=== PATIENT | female | born 1990 | race Caucasian/White ===

== ENCOUNTER 2018-03-24 07:18 | Inpatient (IN) | payer BC, OTHER ==
[~2018-03-24] VITALS: Ht 165.1 cm; Wt 67.1 kg
[~2018-03-24 07:18] MED LIST: HYDR200T72 PO; IUD; MYCO500T PO
[2018-03-24] MEDS ORDERED: HTN MED PEG (07:40)
[2018-03-24] MEDS ORDERED: SODIUM CHLORIDE FLUSH 10ML SYR IVF ONE (08:00)
[2018-03-24 08:11] LABS: BASOPHILS # (AUTO) 0.05 x10^3/uL (0-0.1); BASOPHILS % (AUTO) 1 % (0-1); EOSINOPHILS # (AUTO) 0.02 x10^3/uL (0-0.4); EOSINOPHILS % (AUTO) 0 % (1-7); LYMPHOCYTES # (AUTO) 1.69 x10^3/uL (1-3.4); LYMPHOCYTES % (AUTO) 30 % (22-44); MD NO; MEAN CORPUSCULAR HGB CONC 32.9 g/dL (32.4-35.8); MEAN CORPUSCULAR VOLUME 91.1 fL (80-100); MEAN PLATELET VOLUME 7.1 fL (7.4-10.4); MONOCYTES # (AUTO) 0.36 x10^3/uL (0.2-0.8); MONOCYTES % (AUTO) 6 % (2-9); NEUTROPHILS # (AUTO) 3.58 x10^3/uL (1.8-6.8); NEUTROPHILS % (AUTO) 63 % (42-75); PLATELET COUNT 371 x10^3/uL (130-400); RED BLOOD COUNT 3.08 x10^6/uL (3.82-5.3); RED CELL DISTRIBUTION WIDTH 15.5 % (9.6-15.2)
[2018-03-24 08:23] LABS: ALANINE AMINOTRANSFERASE 14 U/L (12-78); ALBUMIN 2.8 g/dL (3.4-5.0); ANION GAP 8 mmol/L (5-15); CALCIUM 8.6 mg/dL (8.5-10.1); CHLORIDE 112 mmol/L (98-107)
[2018-03-24 08:39] LABS: ALKALINE PHOSPHATASE 41 U/L (45-117); BILIRUBIN,TOTAL 0.3 mg/dL (0.2-1.0)
[2018-03-24] MEDS ORDERED: SODIUM CHLORIDE FLUSH 10ML SYR IVF PRN (12:00)
[2018-03-24 13:22] VITALS: BP 173/115
[2018-03-24] MEDS ORDERED: PRED20TA PO (13:27)
[2018-03-24] MEDS ORDERED: AMLO5TAB2 PO (13:27)
[2018-03-24] MEDS ORDERED: DOCUSATE 100 MG CAPSULE PO PRN (14:00)
[2018-03-24] MEDS ORDERED: ONDANSETRON 2MG/ML, 2ML IVPush PRN (14:00)
[2018-03-24] MEDS ORDERED: FENTANYL PF 100 MCG/2ML ONE (16:05)
[2018-03-24] MEDS ORDERED: MIDAZOLAM 1 MG/ML, 2ML ONE (16:05)
[2018-03-24] MEDS: morphine SULFATE 10 MG/ML, 1ML IVPush PRN (17:50)
[2018-03-24 18:25] VITALS: BP 152/98
[2018-03-24 19:06] VITALS: BP 141/90
[2018-03-24 20:18] VITALS: BP_SYST 148; BP_SYST 149; BP_DIAS 107
[2018-03-24 20:19] VITALS: BP 150/110
[2018-03-24] MEDS: ACETAMINOPHEN 325 MG TABLET PO PRN (21:12)
[2018-03-24 21:55] LABS: CREATININE,URINE RANDOM 59.1 mg/dL
[2018-03-24 22:00] LABS: MICROSCOPIC INDICATED
[2018-03-24 22:09] LABS: CULTURE INDICATED? YES
[2018-03-25 01:05] VITALS: BP 139/98
[2018-03-25] MEDS: ACETAMINOPHEN 325 MG TABLET PO PRN ×2 (04:54→20:38)
[2018-03-25 06:05] LABS: ANION GAP 8 mmol/L (5-15); CALCIUM 8.1 mg/dL (8.5-10.1); CHLORIDE 112 mmol/L (98-107); CREATININE 2.87 mg/dL (0.55-1.02)
[2018-03-25 06:09] LABS: BASOPHILS # (AUTO) 0.05 x10^3/uL (0-0.1); BASOPHILS % (AUTO) 1 % (0-1); EOSINOPHILS # (AUTO) 0.07 x10^3/uL (0-0.4); EOSINOPHILS % (AUTO) 1 % (1-7); LYMPHOCYTES # (AUTO) 2.18 x10^3/uL (1-3.4); LYMPHOCYTES % (AUTO) 28 % (22-44); MD NO; MEAN CORPUSCULAR HEMOGLOBIN 31.3 pg (27.0-34.8); MEAN CORPUSCULAR HGB CONC 34.1 g/dL (32.4-35.8); MEAN CORPUSCULAR VOLUME 91.8 fL (80-100); MEAN PLATELET VOLUME 7.4 fL (7.4-10.4); MONOCYTES # (AUTO) 0.51 x10^3/uL (0.2-0.8); MONOCYTES % (AUTO) 7 % (2-9); NEUTROPHILS # (AUTO) 4.87 x10^3/uL (1.8-6.8); NEUTROPHILS % (AUTO) 64 % (42-75); PLATELET COUNT 352 x10^3/uL (130-400); RED BLOOD COUNT 2.97 x10^6/uL (3.82-5.3); RED CELL DISTRIBUTION WIDTH 15.3 % (9.6-15.2)
[2018-03-25 08:52] VITALS: BP 155/112
[2018-03-25] MEDS ORDERED: SODIUM CHLORIDE 0.9% 1,000ML IV ONE (10:30)
[2018-03-25] MEDS ORDERED: DIPHENHYDRAMINE 50 MG/ML, 1ML IVPush ONE (11:00)
[2018-03-25] MEDS ORDERED: ACETAMINOPHEN 325 MG TABLET PO ONE (11:00)
[2018-03-25] MEDS ORDERED: RITUXIMAB IV ONE (11:30)
[2018-03-25] MEDS ORDERED: SODIUM CHLORIDE 0.9% IV ONE (11:30)
[2018-03-25 13:18] VITALS: BP 158/113
[2018-03-25] MEDS: hydrALAzine 20 MG/ML, 1ML IVPush PRN (13:23)
[2018-03-25] MEDS: morphine SULFATE 10 MG/ML, 1ML IVPush PRN (13:58)
[2018-03-25 14:43] VITALS: BP 155/114
[2018-03-25] MEDS: AMLODIPINE 5 MG TABLET PO SCH (14:44)
[2018-03-25 18:31] VITALS: BP 143/94
[2018-03-25] MEDS: CARVEDILOL 3.125 MG TABLET PO SCH (18:33)
[2018-03-25 19:39] VITALS: BP 134/86
[2018-03-26 00:35] VITALS: BP 145/88
[2018-03-26 05:10] LABS: ABSOLUTE RETICS # 0.109 x10^6/uL (0.5-2.5); RED BLOOD COUNT 3.25 x10^6/uL (3.82-5.3); RETICULOCYTE COUNT % 3.36 % (0.5-1.5)
[2018-03-26 05:17] LABS: BASOPHILS # (AUTO) 0.02 x10^3/uL (0-0.1); BASOPHILS % (AUTO) 0 % (0-1); EOSINOPHILS % (AUTO) 0 % (1-7); LYMPHOCYTES # (AUTO) 1.35 x10^3/uL (1-3.4); LYMPHOCYTES % (AUTO) 13 % (22-44); MD NO; MEAN CORPUSCULAR HEMOGLOBIN 30.8 pg (27.0-34.8); MEAN CORPUSCULAR HGB CONC 33.9 g/dL (32.4-35.8); MEAN CORPUSCULAR VOLUME 90.8 fL (80-100); MEAN PLATELET VOLUME 7.6 fL (7.4-10.4); MONOCYTES # (AUTO) 0.14 x10^3/uL (0.2-0.8); MONOCYTES % (AUTO) 1 % (2-9); NEUTROPHILS # (AUTO) 8.82 x10^3/uL (1.8-6.8); NEUTROPHILS % (AUTO) 85 % (42-75); PLATELET COUNT 423 x10^3/uL (130-400); RED BLOOD COUNT 3.21 x10^6/uL (3.82-5.3); RED CELL DISTRIBUTION WIDTH 15.7 % (9.6-15.2)
[2018-03-26 05:26] LABS: ANION GAP 10 mmol/L (5-15); CALCIUM 8.2 mg/dL (8.5-10.1); CHLORIDE 110 mmol/L (98-107)
[2018-03-26 05:32] LABS: % IRON SATURATION 15 % (20-55); CREATININE 3.43 mg/dL (0.55-1.02); IRON LEVEL 26 mcg/dL (50-170); TOTAL IRON BINDING CAPACITY 176 mcg/dL (250-450)
[2018-03-26] MEDS: CARVEDILOL 3.125 MG TABLET PO SCH ×2 (06:17→18:14)
[2018-03-26 06:18] VITALS: BP 131/91
[2018-03-26 07:21] VITALS: BP 138/94
[2018-03-26 08:50] VITALS: BP 136/92
[2018-03-26] MEDS: AMLODIPINE 5 MG TABLET PO SCH (08:50)
[2018-03-26 13:05] LABS: OCCULT BLOOD NEGATIVE (NEGATIVE)
[2018-03-26 13:12] VITALS: BP 123/82
[2018-03-26 18:50] VITALS: BP 138/88
[2018-03-27 01:34] VITALS: BP 138/93
[2018-03-27] MEDS: ACETAMINOPHEN 325 MG TABLET PO PRN ×2 (04:21→14:28)
[2018-03-27 04:34] VITALS: BP 149/105
[2018-03-27] MEDS: CARVEDILOL 3.125 MG TABLET PO SCH ×2 (04:38→18:12)
[2018-03-27] MEDS: morphine SULFATE 10 MG/ML, 1ML IVPush PRN ×2 (05:47→18:11)
[2018-03-27 07:53] VITALS: BP 151/104
[2018-03-27] MEDS: AMLODIPINE 5 MG TABLET PO SCH (07:53)
[2018-03-27] MEDS: hydrALAzine 20 MG/ML, 1ML IVPush PRN (07:55)
[2018-03-27 09:45] LABS: ANION GAP 9 mmol/L (5-15); CALCIUM 8.4 mg/dL (8.5-10.1); CHLORIDE 109 mmol/L (98-107); CREATININE 3.51 mg/dL (0.55-1.02)
[2018-03-27 10:12] LABS: MD YES; MEAN CORPUSCULAR HEMOGLOBIN 31.1 pg (27.0-34.8); MEAN CORPUSCULAR HGB CONC 33.4 g/dL (32.4-35.8); MEAN CORPUSCULAR VOLUME 93.3 fL (80-100); MEAN PLATELET VOLUME 7.9 fL (7.4-10.4); PLATELET COUNT 516 x10^3/uL (130-400); RED BLOOD COUNT 3.01 x10^6/uL (3.82-5.3); RED CELL DISTRIBUTION WIDTH 16.7 % (9.6-15.2)
[2018-03-27 10:13] LABS: BANDS%(MANUAL) 10 % (0-7); LYMPH#(MANUAL) 1.08 x10^3/uL (1-3.4); LYMPHS% (MANUAL) 4 % (22-44); MONOS#(MANUAL) 0.54 x10^3/uL (0.3-2.7); MONOS% (MANUAL) 2 % (2-9); SEG#(MANUAL) 22.68 x10^3/uL (1.8-6.8); SEGS% (MANUAL) 84 % (42-75)
[2018-03-27 10:14] LABS: ANISOCYTOSIS 1+; POLYCHROMASIA 1+
[2018-03-27 10:15] LABS: <PLATELET ESTIMATE> INCREASED; <PLT MORPHOLOGY> NORMAL PLT MORPH
[2018-03-27 14:00] VITALS: BP 145/88
[2018-03-27 19:18] VITALS: BP 148/90
[2018-03-28] VITALS (8 sets, daily range): BP systolic 148–169; BP diastolic 90–113
[2018-03-28] MEDS: CARVEDILOL 3.125 MG TABLET PO SCH ×2 (05:51→18:04)
[2018-03-28 06:10] LABS: MEAN CORPUSCULAR HEMOGLOBIN 30.6 pg (27.0-34.8); MEAN CORPUSCULAR HGB CONC 33.2 g/dL (32.4-35.8); MEAN PLATELET VOLUME 7.3 fL (7.4-10.4); PLATELET COUNT 512 x10^3/uL (130-400); RED CELL DISTRIBUTION WIDTH 16.4 % (9.6-15.2)
[2018-03-28 06:22] LABS: CHLORIDE 110 mmol/L (98-107)
[2018-03-28 06:27] LABS: ANION GAP 11 mmol/L (5-15); CALCIUM 8.3 mg/dL (8.5-10.1); CREATININE 3.35 mg/dL (0.55-1.02)
[2018-03-28 06:29] LABS: BASOPHILS % (AUTO) 0 % (0-1); EOSINOPHILS % (AUTO) 0 % (1-7); LYMPHOCYTES # (AUTO) 1.16 x10^3/uL (1-3.4); LYMPHOCYTES % (AUTO) 6 % (22-44); MD SCAN; MONOCYTES # (AUTO) 0.14 x10^3/uL (0.2-0.8); MONOCYTES % (AUTO) 1 % (2-9); NEUTROPHILS # (AUTO) 17.37 x10^3/uL (1.8-6.8); NEUTROPHILS % (AUTO) 93 % (42-75)
[2018-03-28] MEDS: hydrALAzine 20 MG/ML, 1ML IVPush PRN ×2 (06:29→23:26)
[2018-03-28] MEDS: AMLODIPINE 5 MG TABLET PO SCH (08:14)
[2018-03-28] MEDS: CHOLECALCIFEROL 5,000u TAB PO SCH (08:14)
[2018-03-28] MEDS: ACETAMINOPHEN 325 MG TABLET PO PRN (08:18)
[2018-03-28] MEDS: SODIUM BICARBONATE 650 MG TABLET PO SCH ×2 (10:54→21:06)
[2018-03-29] VITALS (12 sets, daily range): BP systolic 138–161; BP diastolic 89–117
[2018-03-29] MEDS: ACETAMINOPHEN 325 MG TABLET PO PRN ×2 (00:42→05:16)
[2018-03-29] MEDS ORDERED: LABETALOL 5MG/ML, 20ML IVPush PRN ×2 (01:00→08:30)
[2018-03-29] MEDS: CARVEDILOL 3.125 MG TABLET PO SCH ×2 (05:11→17:38)
[2018-03-29] MEDS: hydrALAzine 20 MG/ML, 1ML IVPush PRN (05:11)
[2018-03-29] MEDS: CHOLECALCIFEROL 5,000u TAB PO SCH (07:50)
[2018-03-29] MEDS: SODIUM BICARBONATE 650 MG TABLET PO SCH ×2 (07:51→21:08)
[2018-03-29] MEDS: AMLODIPINE 5 MG TABLET PO SCH (07:52)
[2018-03-29] MEDS: OXYcodone IR 5MG TABLET PO PRN ×2 (09:35→21:16)
[2018-03-29 10:09] LABS: MEAN CORPUSCULAR HEMOGLOBIN 30.5 pg (27.0-34.8); MEAN CORPUSCULAR VOLUME 92.3 fL (80-100); MEAN PLATELET VOLUME 7.4 fL (7.4-10.4); PLATELET COUNT 617 x10^3/uL (130-400); RED BLOOD COUNT 3.66 x10^6/uL (3.82-5.3); RED CELL DISTRIBUTION WIDTH 16.5 % (9.6-15.2)
[2018-03-29 10:13] LABS: CHLORIDE 108 mmol/L (98-107)
[2018-03-29 10:19] LABS: ANION GAP 10 mmol/L (5-15); CALCIUM 8.2 mg/dL (8.5-10.1); CREATININE 2.91 mg/dL (0.55-1.02)
[2018-03-29 10:24] LABS: MD YES
[2018-03-29 10:25] LABS: ANISOCYTOSIS 1+; LYMPH#(MANUAL) 1.16 x10^3/uL (1-3.4); LYMPHS% (MANUAL) 6 % (22-44); MONOS#(MANUAL) 0.39 x10^3/uL (0.3-2.7); MONOS% (MANUAL) 2 % (2-9); MYELOCYTES# (MANUAL) 0.19 x10^3/uL (0-0); MYELOCYTES% (MANUAL) 1 % (0-0); NRBC % (MANUAL) 2 % (0-1); POLYCHROMASIA 1+; SEG#(MANUAL) 17.65 x10^3/uL (1.8-6.8); SEGS% (MANUAL) 91 % (42-75)
[2018-03-29 10:26] LABS: <PLATELET ESTIMATE> INCREASED; <PLT MORPHOLOGY> NORMAL PLT MORPH
[2018-03-30] VITALS (9 sets, daily range): BP systolic 144–165; BP diastolic 94–127
[2018-03-30 05:24] LABS: BASOPHILS # (AUTO) 0.03 x10^3/uL (0-0.1); BASOPHILS % (AUTO) 0 % (0-1); EOSINOPHILS % (AUTO) 0 % (1-7); LYMPHOCYTES # (AUTO) 2.17 x10^3/uL (1-3.4); LYMPHOCYTES % (AUTO) 15 % (22-44); MD NO; MEAN CORPUSCULAR HEMOGLOBIN 30.5 pg (27.0-34.8); MEAN CORPUSCULAR VOLUME 92.5 fL (80-100); MEAN PLATELET VOLUME 7.4 fL (7.4-10.4); MONOCYTES # (AUTO) 0.96 x10^3/uL (0.2-0.8); MONOCYTES % (AUTO) 7 % (2-9); NEUTROPHILS # (AUTO) 11.44 x10^3/uL (1.8-6.8); NEUTROPHILS % (AUTO) 78 % (42-75); PLATELET COUNT 510 x10^3/uL (130-400); RED BLOOD COUNT 3.48 x10^6/uL (3.82-5.3); RED CELL DISTRIBUTION WIDTH 16.1 % (9.6-15.2)
[2018-03-30 05:31] LABS: ANION GAP 9 mmol/L (5-15); CALCIUM 8.3 mg/dL (8.5-10.1); CHLORIDE 109 mmol/L (98-107); CREATININE 2.91 mg/dL (0.55-1.02)
[2018-03-30] MEDS: CARVEDILOL 3.125 MG TABLET PO SCH (05:39)
[2018-03-30] MEDS: CHOLECALCIFEROL 5,000u TAB PO SCH (08:45)
[2018-03-30] MEDS: SODIUM BICARBONATE 650 MG TABLET PO SCH ×2 (08:45→20:03)
[2018-03-30] MEDS: AMLODIPINE 5 MG TABLET PO SCH (08:46)
[2018-03-30] MEDS: CARVEDILOL 6.25 MG TABLET PO SCH (18:27)
[2018-03-31] VITALS (7 sets, daily range): BP systolic 133–154; BP diastolic 86–104
[2018-03-31] MEDS: CARVEDILOL 6.25 MG TABLET PO SCH ×2 (05:01→17:02)
[2018-03-31 06:05] LABS: BASOPHILS # (AUTO) 0.04 x10^3/uL (0-0.1); BASOPHILS % (AUTO) 0 % (0-1); EOSINOPHILS % (AUTO) 0 % (1-7); LYMPHOCYTES % (AUTO) 16 % (22-44); MD NO; MEAN CORPUSCULAR HEMOGLOBIN 30.7 pg (27.0-34.8); MEAN CORPUSCULAR HGB CONC 33.2 g/dL (32.4-35.8); MEAN CORPUSCULAR VOLUME 92.6 fL (80-100); MEAN PLATELET VOLUME 7.6 fL (7.4-10.4); MONOCYTES # (AUTO) 0.74 x10^3/uL (0.2-0.8); MONOCYTES % (AUTO) 6 % (2-9); NEUTROPHILS # (AUTO) 9.25 x10^3/uL (1.8-6.8); NEUTROPHILS % (AUTO) 78 % (42-75); PLATELET COUNT 452 x10^3/uL (130-400); RED BLOOD COUNT 3.25 x10^6/uL (3.82-5.3); RED CELL DISTRIBUTION WIDTH 15.8 % (9.6-15.2)
[2018-03-31 06:12] LABS: CHLORIDE 110 mmol/L (98-107)
[2018-03-31 06:21] LABS: ALANINE AMINOTRANSFERASE 21 U/L (12-78); ALBUMIN 2.3 g/dL (3.4-5.0); ALKALINE PHOSPHATASE 53 U/L (45-117); ANION GAP 10 mmol/L (5-15); BILIRUBIN,TOTAL 0.2 mg/dL (0.2-1.0); CALCIUM 7.9 mg/dL (8.5-10.1); CREATININE 2.56 mg/dL (0.55-1.02); TOTAL PROTEIN 5.7 g/dL (6.4-8.2)
[2018-03-31] MEDS: AMLODIPINE 5 MG TABLET PO SCH (09:05)
[2018-03-31] MEDS: SODIUM BICARBONATE 650 MG TABLET PO SCH ×2 (09:05→19:47)
[2018-03-31] MEDS: CHOLECALCIFEROL 5,000u TAB PO SCH (09:06)
[2018-03-31] MEDS ORDERED: CHLORHEXIDINE 15 ML BOTTLE MM PRN (20:30)
[2018-03-31] MEDS ORDERED: INSULIN LISPRO 100 UNITS/ML, PEN SQ-INSULIN SCH (20:30)
[2018-03-31 20:56] LABS: BASOPHILS # (AUTO) 0.01 x10^3/uL (0-0.1); BASOPHILS % (AUTO) 0 % (0-1); EOSINOPHILS % (AUTO) 0 % (1-7); LYMPHOCYTES # (AUTO) 0.68 x10^3/uL (1-3.4); LYMPHOCYTES % (AUTO) 7 % (22-44); MD NO; MEAN CORPUSCULAR HEMOGLOBIN 31.4 pg (27.0-34.8); MEAN CORPUSCULAR HGB CONC 33.8 g/dL (32.4-35.8); MEAN CORPUSCULAR VOLUME 92.8 fL (80-100); MEAN PLATELET VOLUME 7.5 fL (7.4-10.4); MONOCYTES # (AUTO) 0.06 x10^3/uL (0.2-0.8); MONOCYTES % (AUTO) 1 % (2-9); NEUTROPHILS # (AUTO) 9.31 x10^3/uL (1.8-6.8); NEUTROPHILS % (AUTO) 93 % (42-75); PLATELET COUNT 469 x10^3/uL (130-400); RED BLOOD COUNT 3.51 x10^6/uL (3.82-5.3); RED CELL DISTRIBUTION WIDTH 15.6 % (9.6-15.2)
[2018-03-31 21:04] LABS: INTERNATIONAL NORMALIZED RATIO 0.96 (0.93-1.1); PROTHROMBIN TIME 9.9 Seconds (9.6-11.5)
[2018-03-31 21:06] LABS: ALANINE AMINOTRANSFERASE 25 U/L (12-78); ALBUMIN 2.5 g/dL (3.4-5.0); ANION GAP 7 mmol/L (5-15); CALCIUM 8.1 mg/dL (8.5-10.1); CHLORIDE 109 mmol/L (98-107); CREATININE 2.64 mg/dL (0.55-1.02)
[2018-03-31 21:08] LABS: ALKALINE PHOSPHATASE 63 U/L (45-117); BILIRUBIN,TOTAL 0.2 mg/dL (0.2-1.0); TOTAL PROTEIN 6.1 g/dL (6.4-8.2)
[2018-03-31] MEDS: SODIUM CHLORIDE FLUSH 10ML SYR IVF SCH (21:25)
[2018-03-31 21:27] LABS: HEMOGLOBIN A1C 4.6 % (4.2-6.3)
[2018-03-31 23:20] LABS: MICROSCOPIC INDICATED
[2018-03-31] MEDS ORDERED: CHLORHEXIDINE 15 ML UDC MM PRN (23:30)
[2018-04-01 01:09] VITALS: BP 147/98
[2018-04-01 04:00] VITALS: BP_SYST 148; BP_SYST 150; BP_DIAS 95; BP_DIAS 99
[2018-04-01 05:49] LABS: BASOPHILS % (AUTO) 0 % (0-1); EOSINOPHILS # (AUTO) 0.11 x10^3/uL (0-0.4); EOSINOPHILS % (AUTO) 1 % (1-7); LYMPHOCYTES # (AUTO) 0.82 x10^3/uL (1-3.4); LYMPHOCYTES % (AUTO) 10 % (22-44); MD NO; MEAN CORPUSCULAR HEMOGLOBIN 30.9 pg (27.0-34.8); MEAN CORPUSCULAR HGB CONC 33.6 g/dL (32.4-35.8); MEAN PLATELET VOLUME 7.4 fL (7.4-10.4); MONOCYTES # (AUTO) 0.11 x10^3/uL (0.2-0.8); MONOCYTES % (AUTO) 1 % (2-9); NEUTROPHILS # (AUTO) 7.64 x10^3/uL (1.8-6.8); NEUTROPHILS % (AUTO) 88 % (42-75); PLATELET COUNT 422 x10^3/uL (130-400); RED BLOOD COUNT 3.21 x10^6/uL (3.82-5.3); RED CELL DISTRIBUTION WIDTH 15.9 % (9.6-15.2)
[2018-04-01 05:51] LABS: ALBUMIN 2.3 g/dL (3.4-5.0); ANION GAP 8 mmol/L (5-15); CALCIUM 7.9 mg/dL (8.5-10.1); CHLORIDE 111 mmol/L (98-107); CREATININE 2.72 mg/dL (0.55-1.02)
[2018-04-01 06:01] VITALS: BP 150/110
[2018-04-01] MEDS: CARVEDILOL 6.25 MG TABLET PO SCH ×2 (06:02→16:48)
[2018-04-01] MEDS ORDERED: FENTANYL PF 250 MCG/5ML ONE ×2 (06:59→09:26)
[2018-04-01] MEDS ORDERED: MIDAZOLAM 10MG/2 ML ONE (06:59)
[2018-04-01] MEDS ORDERED: KETAMINE 10 MG/ML, 20ML ONE (06:59)
[2018-04-01] MEDS ORDERED: CEFAZOLIN 1,000 MG ONE (07:20)
[2018-04-01] MEDS ORDERED: ONDANSETRON 2MG/ML, 2ML ONE (07:20)
[2018-04-01] MEDS ORDERED: EPINEPHRINE 2 MG in SODIUM CHLORIDE 0.9% 248 ML IV SCH (07:30)
[2018-04-01] MEDS ORDERED: VANCOMYCIN 1,000 MG in SODIUM CHLORIDE 0.9% 100 ML IV ONE (07:30)
[2018-04-01] MEDS ORDERED: POTASSIUM CHLORIDE 80 MEQ, SODIUM BICARBONATE 8.4% 10 MEQ, MAGNESIUM SULFATE 0.5 GM, LI... IV PRN (07:30)
[2018-04-01] MEDS ORDERED: ALBUMIN HUMAN 5% 500 ML IV PRN (07:30)
[2018-04-01] MEDS ORDERED: DEXMEDETOMIDINE 200 MCG in SODIUM CHLORIDE 0.9% 48 ML IV SCH (07:30)
[2018-04-01] MEDS ORDERED: PHENYLEPHRINE 10 MG in SODIUM CHLORIDE 0.9% 249 ML IV PRN (07:30)
[2018-04-01] MEDS ORDERED: MANNITOL PMX 20% 500 ML IVPB PRN (07:30)
[2018-04-01] MEDS ORDERED: CEFUROXIME 1.5 GM in SODIUM CHLORIDE 0.9% 50 ML IVPB PRN (07:30)
[2018-04-01] MEDS ORDERED: REGULAR INSULIN 62.5 UNITS in SODIUM CHLORIDE 0.9% 249.375 ML IV PRN (07:30)
[2018-04-01] MEDS: AMLODIPINE 5 MG TABLET PO SCH (07:52)
[2018-04-01] MEDS: CHOLECALCIFEROL 5,000u TAB PO SCH (07:52)
[2018-04-01] MEDS: SODIUM BICARBONATE 650 MG TABLET PO SCH ×2 (07:52→21:25)
[2018-04-01] MEDS ORDERED: ROCURONIUM 10MG/ML,5ML ONE ×2 (07:52)
[2018-04-01] MEDS: SODIUM CHLORIDE FLUSH 10ML SYR IVF SCH ×2 (07:52→21:21)
[2018-04-01] MEDS ORDERED: PROPOFOL 10 MG/ML, 20ML ONE (07:53)
[2018-04-01] MEDS ORDERED: ONDANSETRON 2MG/ML, 2ML IVPush PRN (08:30)
[2018-04-01] MEDS ORDERED: PROPOFOL 50 ML ONE (08:30)
[2018-04-01] MEDS ORDERED: DIPHENHYDRAMINE 50 MG/ML, 1ML IV PRN (08:30)
[2018-04-01] MEDS ORDERED: MORPHINE SULFATE 4 MG/ML, 1ML IVPush PRN (08:30)
[2018-04-01] MEDS ORDERED: ENOXAPARIN 40 MG/0.4 ML SQ SCH (08:30)
[2018-04-01] MEDS ORDERED: ACETAMINOPHEN 650 MG/20.3 ML UDC PO PRN (08:30)
[2018-04-01] MEDS ORDERED: SODIUM CHLORIDE 0.9%, 500ML IVBOLUS PRN (08:30)
[2018-04-01] MEDS: LACTATED RINGERS 1,000 ML IV SCH (10:13)
[2018-04-01] MEDS ORDERED: PROPOFOL 100 ML IV PRN (10:30)
[2018-04-01] MEDS: OXYcodone/APAP 5/325MG TABLET PO PRN ×3 (10:39→21:58)
[2018-04-01] MEDS: INSULIN LISPRO 100 UNITS/ML, PEN SQ-INSULIN SCH ×3 (11:00→21:00)
[2018-04-01] MEDS ORDERED: FUROSEMIDE 40 MG/4 ML IV ONE (11:00)
[2018-04-01] MEDS: hydrALAzine 20 MG/ML, 1ML IV PRN (11:08)
[2018-04-01] MEDS ORDERED: DIPHENHYDRAMINE 50 MG/ML, 1ML IVPush ONE (12:30)
[2018-04-01] MEDS: morphine SULFATE 10 MG/ML, 1ML IVPush PRN (12:33)
[2018-04-01] MEDS ORDERED: SODIUM CHLORIDE 0.9% 1,000ML IV ONE (13:00)
[2018-04-01] MEDS ORDERED: ACETAMINOPHEN 325 MG TABLET PO ONE (13:00)
[2018-04-01] MEDS ORDERED: SODIUM CHLORIDE 0.9% IV ONE (13:30)
[2018-04-01] MEDS ORDERED: RITUXIMAB IV ONE (13:30)
[2018-04-02] MEDS: LACTATED RINGERS 1,000 ML IV SCH (01:35)
[2018-04-02 04:25] LABS: MEAN CORPUSCULAR HEMOGLOBIN 30.4 pg (27.0-34.8); MEAN CORPUSCULAR HGB CONC 32.7 g/dL (32.4-35.8); MEAN PLATELET VOLUME 7.6 fL (7.4-10.4); PLATELET COUNT 393 x10^3/uL (130-400); RED BLOOD COUNT 3.48 x10^6/uL (3.82-5.3); RED CELL DISTRIBUTION WIDTH 16.5 % (9.6-15.2)
[2018-04-02 04:27] LABS: ALBUMIN 2.3 g/dL (3.4-5.0); ANION GAP 8 mmol/L (5-15); CALCIUM 8.4 mg/dL (8.5-10.1); CHLORIDE 113 mmol/L (98-107)
[2018-04-02 04:30] VITALS: BP 125/90
[2018-04-02 04:31] LABS: ALANINE AMINOTRANSFERASE 18 U/L (12-78); ALKALINE PHOSPHATASE 38 U/L (45-117); BILIRUBIN,TOTAL 0.3 mg/dL (0.2-1.0); CREATININE 2.55 mg/dL (0.55-1.02); TOTAL PROTEIN 5.7 g/dL (6.4-8.2)
[2018-04-02 04:44] LABS: BASOPHILS % (AUTO) 0 % (0-1); EOSINOPHILS # (AUTO) 0.24 x10^3/uL (0-0.4); EOSINOPHILS % (AUTO) 1 % (1-7); LYMPHOCYTES # (AUTO) 0.48 x10^3/uL (1-3.4); LYMPHOCYTES % (AUTO) 3 % (22-44); MD SCAN; MONOCYTES # (AUTO) 0.14 x10^3/uL (0.2-0.8); MONOCYTES % (AUTO) 1 % (2-9); NEUTROPHILS # (AUTO) 16.74 x10^3/uL (1.8-6.8); NEUTROPHILS % (AUTO) 95 % (42-75)
[2018-04-02] MEDS: CARVEDILOL 6.25 MG TABLET PO SCH ×2 (04:58→17:56)
[2018-04-02] MEDS: OXYcodone/APAP 5/325MG TABLET PO PRN ×2 (04:58→09:40)
[2018-04-02] MEDS: INSULIN LISPRO 100 UNITS/ML, PEN SQ-INSULIN SCH ×4 (08:33→20:59)
[2018-04-02] MEDS: PANTOPRAZOLE 40 MG IV IVPush SCH (09:29)
[2018-04-02] MEDS: SODIUM BICARBONATE 650 MG TABLET PO SCH (09:29)
[2018-04-02] MEDS: AMLODIPINE 5 MG TABLET PO SCH (09:29)
[2018-04-02] MEDS: ENOXAPARIN 30 MG/0.3 ML SQ SCH (09:29)
[2018-04-02] MEDS: SODIUM CHLORIDE FLUSH 10ML SYR IVF SCH ×2 (09:29→20:59)
[2018-04-02] MEDS: CHOLECALCIFEROL 5,000u TAB PO SCH (09:30)
[2018-04-02] MEDS: SODIUM BICARB 8.4%,50ML SYR. 75 MEQ in SODIUM CHLORIDE 0.45% 1,000 ML IV SCH (10:30)
[2018-04-02] MEDS ORDERED: SODIUM POLYSTYRENE SULFONATE ORAL SUSP PO ONE (10:30)
[2018-04-02] MEDS: OXYcodone IR 5MG TABLET PO PRN ×2 (12:39→21:37)
[2018-04-02] MEDS: hydrALAzine 20 MG/ML, 1ML IV PRN (14:25)
[2018-04-02 17:58] VITALS: BP 150/106
[2018-04-02 19:27] VITALS: BP 132/89
[2018-04-03 03:50] VITALS: BP 137/93
[2018-04-03 05:08] LABS: BASOPHILS % (AUTO) 0 % (0-1); EOSINOPHILS % (AUTO) 0 % (1-7); LYMPHOCYTES # (AUTO) 0.71 x10^3/uL (1-3.4); LYMPHOCYTES % (AUTO) 7 % (22-44); MD NO; MEAN CORPUSCULAR HEMOGLOBIN 30.5 pg (27.0-34.8); MEAN CORPUSCULAR VOLUME 92.7 fL (80-100); MEAN PLATELET VOLUME 7.8 fL (7.4-10.4); MONOCYTES # (AUTO) 0.15 x10^3/uL (0.2-0.8); MONOCYTES % (AUTO) 2 % (2-9); NEUTROPHILS % (AUTO) 91 % (42-75); PLATELET COUNT 328 x10^3/uL (130-400); RED BLOOD COUNT 3.36 x10^6/uL (3.82-5.3); RED CELL DISTRIBUTION WIDTH 16.2 % (9.6-15.2)
[2018-04-03 05:09] LABS: ANION GAP 10 mmol/L (5-15); CALCIUM 8.1 mg/dL (8.5-10.1); CHLORIDE 107 mmol/L (98-107)
[2018-04-03 05:12] LABS: ALANINE AMINOTRANSFERASE 17 U/L (12-78); ALKALINE PHOSPHATASE 47 U/L (45-117); BILIRUBIN,TOTAL 0.2 mg/dL (0.2-1.0); TOTAL PROTEIN 5.6 g/dL (6.4-8.2)
[2018-04-03] MEDS: CARVEDILOL 6.25 MG TABLET PO SCH (06:23)
[2018-04-03] MEDS: OXYcodone IR 5MG TABLET PO PRN ×3 (06:32→20:05)
[2018-04-03] MEDS: INSULIN LISPRO 100 UNITS/ML, PEN SQ-INSULIN SCH ×4 (07:00→20:05)
[2018-04-03 08:10] VITALS: BP 150/105
[2018-04-03] MEDS: ENOXAPARIN 30 MG/0.3 ML SQ SCH (08:30)
[2018-04-03] MEDS: AMLODIPINE 5 MG TABLET PO SCH (08:56)
[2018-04-03] MEDS: PANTOPRAZOLE 40 MG IV IVPush SCH (08:56)
[2018-04-03] MEDS: SODIUM BICARB 8.4%,50ML SYR. 75 MEQ in SODIUM CHLORIDE 0.45% 1,000 ML IV SCH (08:56)
[2018-04-03] MEDS: CHOLECALCIFEROL 5,000u TAB PO SCH (08:56)
[2018-04-03] MEDS: SODIUM CHLORIDE FLUSH 10ML SYR IVF SCH ×2 (08:56→20:05)
[2018-04-03] MEDS: SODIUM CHLORIDE 0.45% 1,000 ML IV SCH ×2 (12:07→22:48)
[2018-04-03 13:47] VITALS: BP 153/98
[2018-04-03] MEDS: CARVEDILOL 12.5 MG TABLET PO SCH (16:20)
[2018-04-03 19:29] VITALS: BP 154/106
[2018-04-03 20:39] VITALS: BP 128/79
[2018-04-04 01:16] VITALS: BP 134/84
[2018-04-04] MEDS: CARVEDILOL 12.5 MG TABLET PO SCH ×2 (05:03→18:04)
[2018-04-04 05:49] LABS: BASOPHILS % (AUTO) 0 % (0-1); EOSINOPHILS % (AUTO) 0 % (1-7); LYMPHOCYTES # (AUTO) 0.59 x10^3/uL (1-3.4); LYMPHOCYTES % (AUTO) 8 % (22-44); MD NO; MEAN CORPUSCULAR HEMOGLOBIN 31.2 pg (27.0-34.8); MEAN CORPUSCULAR HGB CONC 33.4 g/dL (32.4-35.8); MEAN CORPUSCULAR VOLUME 93.5 fL (80-100); MONOCYTES # (AUTO) 0.15 x10^3/uL (0.2-0.8); MONOCYTES % (AUTO) 2 % (2-9); NEUTROPHILS % (AUTO) 91 % (42-75); PLATELET COUNT 326 x10^3/uL (130-400); RED BLOOD COUNT 3.22 x10^6/uL (3.82-5.3)
[2018-04-04 05:52] LABS: ANION GAP 10 mmol/L (5-15); CALCIUM 7.9 mg/dL (8.5-10.1); CHLORIDE 105 mmol/L (98-107); CREATININE 2.62 mg/dL (0.55-1.02)
[2018-04-04] MEDS: INSULIN LISPRO 100 UNITS/ML, PEN SQ-INSULIN SCH ×4 (07:00→20:10)
[2018-04-04] MEDS: PANTOPRAZOLE 40 MG IV IVPush SCH (08:42)
[2018-04-04] MEDS: AMLODIPINE 5 MG TABLET PO SCH (08:42)
[2018-04-04] MEDS: CHOLECALCIFEROL 5,000u TAB PO SCH (08:42)
[2018-04-04] MEDS: SODIUM CHLORIDE FLUSH 10ML SYR IVF SCH ×2 (08:42→20:09)
[2018-04-04 08:45] VITALS: BP 154/108
[2018-04-04] MEDS: OXYcodone IR 5MG TABLET PO PRN ×2 (13:13→20:06)
[2018-04-04 13:16] VITALS: BP 152/98
[2018-04-04] MEDS: SODIUM CHLORIDE 0.45% 1,000 ML IV SCH (13:53)
[2018-04-04 19:25] VITALS: BP 142/84
[2018-04-04] MEDS: ISOSORBIDE DINITRATE 10 MG TABLET PO SCH (20:07)
[2018-04-04] MEDS: ACETAMINOPHEN 650 MG/20.3 ML UDC PO PRN (22:58)
[2018-04-05 01:02] VITALS: BP 133/82
[2018-04-05] MEDS: SODIUM CHLORIDE 0.45% 1,000 ML IV SCH ×2 (02:09→17:52)
[2018-04-05] MEDS: OXYcodone IR 5MG TABLET PO PRN (02:11)
[2018-04-05] MEDS: CARVEDILOL 12.5 MG TABLET PO SCH ×2 (05:41→17:03)
[2018-04-05] MEDS: INSULIN LISPRO 100 UNITS/ML, PEN SQ-INSULIN SCH ×4 (07:00→20:45)
[2018-04-05 07:59] VITALS: BP 150/98
[2018-04-05] MEDS: PANTOPROZOLE 40MG TABLET PO SCH (08:21)
[2018-04-05] MEDS: SODIUM CHLORIDE FLUSH 10ML SYR IVF SCH ×2 (08:21→20:47)
[2018-04-05] MEDS: ISOSORBIDE DINITRATE 10 MG TABLET PO SCH ×2 (08:22→20:44)
[2018-04-05] MEDS: CHOLECALCIFEROL 5,000u TAB PO SCH (08:22)
[2018-04-05 09:30] LABS: ANION GAP 9 mmol/L (5-15); CALCIUM 8.4 mg/dL (8.5-10.1); CHLORIDE 104 mmol/L (98-107); CREATININE 2.26 mg/dL (0.55-1.02)
[2018-04-05] MEDS: OXYcodone/APAP 5/325MG TABLET PO PRN (09:38)
[2018-04-05 14:42] VITALS: BP 148/86
[2018-04-05 18:55] VITALS: BP 143/91
[2018-04-05] MEDS ORDERED: ACETAMINOPHEN 325 MG TABLET ONE (22:46)
[2018-04-05] MEDS: ACETAMINOPHEN 650 MG/20.3 ML UDC PO PRN (22:49)
[2018-04-06 01:30] VITALS: BP 141/89
[2018-04-06] MEDS: CARVEDILOL 12.5 MG TABLET PO SCH (05:43)
[2018-04-06] MEDS: SODIUM CHLORIDE 0.45% 1,000 ML IV SCH (05:44)
[2018-04-06] MEDS ORDERED: DIPHENHYDRAMINE 25 MG CAPSULE PO PRN (07:00)
[2018-04-06] MEDS: INSULIN LISPRO 100 UNITS/ML, PEN SQ-INSULIN SCH ×4 (07:00→21:20)
[2018-04-06 08:09] VITALS: BP 134/93
[2018-04-06] MEDS: SODIUM CHLORIDE FLUSH 10ML SYR IVF SCH ×2 (08:24→21:21)
[2018-04-06] MEDS: PANTOPROZOLE 40MG TABLET PO SCH (08:25)
[2018-04-06] MEDS: ISOSORBIDE DINITRATE 10 MG TABLET PO SCH (08:25)
[2018-04-06] MEDS: CHOLECALCIFEROL 5,000u TAB PO SCH (08:25)
[2018-04-06 09:19] LABS: ANION GAP 9 mmol/L (5-15); CALCIUM 7.9 mg/dL (8.5-10.1); CHLORIDE 105 mmol/L (98-107); CREATININE 2.08 mg/dL (0.55-1.02)
[2018-04-06] MEDS: OXYcodone/APAP 5/325MG TABLET PO PRN (12:55)
[2018-04-06 14:26] VITALS: BP 142/97
[2018-04-06] MEDS: CARVEDILOL 25 MG TABLET PO SCH (16:39)
[2018-04-06 19:10] VITALS: BP 131/77
[2018-04-06] MEDS ORDERED: ACETAMINOPHEN 325 MG TABLET ONE (23:49)
[2018-04-06] MEDS: ACETAMINOPHEN 650 MG/20.3 ML UDC PO PRN (23:51)
[2018-04-06 23:53] VITALS: BP 142/87
[2018-04-07 01:28] VITALS: BP 142/87
[2018-04-07] MEDS: CARVEDILOL 25 MG TABLET PO SCH (06:27)
[2018-04-07 06:28] VITALS: BP 138/86
[2018-04-07] MEDS: INSULIN LISPRO 100 UNITS/ML, PEN SQ-INSULIN SCH ×2 (07:00→11:00)
[2018-04-07] MEDS ORDERED: CHOL500015 PO (07:15)
[2018-04-07] MEDS ORDERED: CARV25TA12 PO (07:15)
[2018-04-07] MEDS ORDERED: ACET650S21 PO (07:15)
[2018-04-07] MEDS ORDERED: HYDR-3343 PO (07:15)
[2018-04-07] MEDS ORDERED: PRED20TA PO (07:15)
[2018-04-07] MEDS ORDERED: PANT40TA5 PO (07:15)
[2018-04-07] MEDS ORDERED: SODI650T PO (07:23)
[2018-04-07 08:00] LABS: ANION GAP 10 mmol/L (5-15); CALCIUM 7.8 mg/dL (8.5-10.1); CHLORIDE 106 mmol/L (98-107); CREATININE 2.19 mg/dL (0.55-1.02)
[2018-04-07 08:05] VITALS: BP 132/83
[2018-04-07] MEDS: CHOLECALCIFEROL 5,000u TAB PO SCH (08:08)
[2018-04-07] MEDS: PANTOPROZOLE 40MG TABLET PO SCH (08:09)
[2018-04-07] MEDS: ACETAMINOPHEN 650 MG/20.3 ML UDC PO PRN (12:42)
[2018-04-07 14:59] VITALS: BP 148/86
[2018-04-10] MEDS ORDERED: PRED20TA PO (10:30)
== END 2018-04-07 16:41 | disposition home or self-care (01) | DRG 270 ==
LOC: ED 08:14 → EDIP 11:51 → 5SO 13:05 → CSU 04-01 07:52 → 5SO 04-02 14:29 → DCLOUNGE 04-07 16:29
PROVIDERS: ADMIT Hospitalist; ATTEND Hospitalist
PROC: 0W9D0ZZ Drainage of Pericardial Cavity, Open Approach (ICD-10-PCS; principal; 2018-03-24)
PROC: 0W9B00Z Drainage of Left Pleural Cavity with Drainage Device, Open Approach (ICD-10-PCS; 2018-03-24)
PROC: B246ZZ4 Ultrasonography of Right and Left Heart, Transesophageal (ICD-10-PCS; 2018-03-24)
PROC: 0W9900Z Drainage of Right Pleural Cavity with Drainage Device, Open Approach (ICD-10-PCS; 2018-03-24)
PROC: 0W9D30Z Drainage of Pericardial Cavity with Drainage Device, Percutaneous Approach (ICD-10-PCS; 2018-03-24)
DX: I13.0 Hypertensive heart and chronic kidney disease with heart failure and stage 1 through stage 4 chronic kidney disease, or unspecified chronic kidney disease (principal); I50.43 Acute on chronic combined systolic (congestive) and diastolic (congestive) heart failure; E43 Unspecified severe protein-calorie malnutrition; J96.00 Acute respiratory failure, unspecified whether with hypoxia or hypercapnia; I31.4 Cardiac tamponade; N18.4 Chronic kidney disease, stage 4 (severe); N17.9 Acute kidney failure, unspecified; E87.2 Acidosis; J90 Pleural effusion, not elsewhere classified; I43 Cardiomyopathy in diseases classified elsewhere; M32.14 Glomerular disease in systemic lupus erythematosus; D63.1 Anemia in chronic kidney disease; E55.9 Vitamin D deficiency, unspecified; E83.39 Other disorders of phosphorus metabolism; E83.51 Hypocalcemia; E87.5 Hyperkalemia; I34.0 Nonrheumatic mitral (valve) insufficiency; Z80.3 Family history of malignant neoplasm of breast; Z80.41 Family history of malignant neoplasm of ovary; Z80.8 Family history of malignant neoplasm of other organs or systems; Z87.891 Personal history of nicotine dependence
CPT/HCPCS: 33010; 36415; 71045; 71046; 76930; 78582; 80048; 80053; 80069; 81001; 82040; 82272; 82306; 82436; 82570; 82728; 82962; 83036; 83540; 83550; 83615; 83735; 83880; 83935; 83970; 84100; 84133; 84156; 84157; 84300; 84550; 84702; 85025; 85045; 85379; 85610; 85730; 86850; 86900; 86923; 87070; 87081; 87086; 87205; 88112; 88305; 93005; 93306; 93308; 93312; 93321; 93325; 94002; 99156; 99285; C1729; G0378; J0690; J0697; J1650; J1815; J1940; J2250; J2405; J2704; J2930; J3010; J3370; J3475; J3480; J3490; P9045; A9540; A9558; C9113; C9898; J0171; J0360; J1200; J2270; J2370; J7030; J7040; J7050; J7120; J7512; J9310; Q0163

== ENCOUNTER 2018-04-13 16:44 | Inpatient (IN) | payer OTHER ==
[~2018-04-13] VITALS: Ht 165.1 cm; Wt 68.3 kg
[~2018-04-13 16:44] MED LIST changes: +ACET650S21 PO; +AMLO5TAB7 PO; +CARV25TA12 PO; +CHOL500015 PO; +HTN MED PEG; +HYDR-3343 PO; +PANT40TA5 PO; +PRED20TA PO; +SODI650T PO
[2018-04-13] MEDS ORDERED: SODIUM CHLORIDE FLUSH 10ML SYR IVF ONE (17:00)
[2018-04-13] MEDS ORDERED: MORPHINE SULFATE 4 MG/ML, 1ML ONE ×2 (17:25→19:29)
[2018-04-13] MEDS ORDERED: ONDANSETRON ODT 4 MG ONE (17:25)
[2018-04-13] MEDS: MORPHINE SULFATE 4 MG/ML, 1ML IVPush PRN ×2 (17:27→19:43)
[2018-04-13] MEDS ORDERED: KETOROLAC 30 MG/1 ML IVPush ONE (17:30)
[2018-04-13 17:37] LABS: BASOPHILS # (AUTO) 0.01 x10^3/uL (0-0.1); BASOPHILS % (AUTO) 0 % (0-1); EOSINOPHILS # (AUTO) 0.04 x10^3/uL (0-0.4); EOSINOPHILS % (AUTO) 0 % (1-7); LYMPHOCYTES # (AUTO) 0.67 x10^3/uL (1-3.4); LYMPHOCYTES % (AUTO) 7 % (22-44); MD NO; MEAN CORPUSCULAR HGB CONC 33.2 g/dL (32.4-35.8); MEAN CORPUSCULAR VOLUME 93.4 fL (80-100); MEAN PLATELET VOLUME 7.9 fL (7.4-10.4); MONOCYTES # (AUTO) 0.37 x10^3/uL (0.2-0.8); MONOCYTES % (AUTO) 4 % (2-9); NEUTROPHILS # (AUTO) 9.09 x10^3/uL (1.8-6.8); NEUTROPHILS % (AUTO) 89 % (42-75); PLATELET COUNT 425 x10^3/uL (130-400); RED BLOOD COUNT 3.35 x10^6/uL (3.82-5.3); RED CELL DISTRIBUTION WIDTH 15.1 % (9.6-15.2)
[2018-04-13 17:39] LABS: ALANINE AMINOTRANSFERASE 19 U/L (12-78); ALBUMIN 2.3 g/dL (3.4-5.0); ANION GAP 7 mmol/L (5-15); CALCIUM 8.3 mg/dL (8.5-10.1); CHLORIDE 115 mmol/L (98-107); CREATININE 2.02 mg/dL (0.55-1.02)
[2018-04-13 17:44] LABS: ALKALINE PHOSPHATASE 56 U/L (45-117); BILIRUBIN,TOTAL 0.5 mg/dL (0.2-1.0)
[2018-04-13 17:50] LABS: TROPONIN I 0.199 ng/mL (0.000-0.045)
[2018-04-13] MEDS ORDERED: ONDANSETRON ODT 4 MG PO ONE (18:00)
[2018-04-13] MEDS ORDERED: LIDOCAINE-MPF 2%, 2ML ONE (18:48)
[2018-04-13] MEDS ORDERED: MORPHINE SULFATE 4 MG/ML, 1ML IVPush ONE (19:30)
[2018-04-13] MEDS ORDERED: OXYcodone/APAP 5/325MG TABLET ONE (19:36)
[2018-04-13] MEDS ORDERED: OXYcodone/APAP 5/325MG TABLET PO ONE (20:00)
[2018-04-13] MEDS ORDERED: hydrALAzine 20 MG/ML, 1ML IV ONE (20:30)
[2018-04-13 20:55] VITALS: BP 160/116
[2018-04-13] MEDS ORDERED: SODIUM CHLORIDE 0.9% 1,000 ML IV SCH (21:24)
[2018-04-13] MEDS ORDERED: ACETAMINOPHEN 650 MG PO PRN (21:30)
[2018-04-13] MEDS ORDERED: PROMETHAZINE 25 MG/ML, 1ML IM PRN (21:30)
[2018-04-13] MEDS ORDERED: ONDANSETRON 2MG/ML, 2ML IVPush PRN (21:30)
[2018-04-13] MEDS ORDERED: LABETALOL 5MG/ML, 20ML IVPush PRN (21:30)
[2018-04-13] MEDS ORDERED: POLYETHYLENE GLYCOL 17 GM PACKET PO PRN (21:30)
[2018-04-13] MEDS: KETOROLAC 30 MG/1 ML IV ONE ×2 (21:30→22:05)
[2018-04-13] MEDS: morphine SULFATE 10 MG/ML, 1ML IVPush PRN (22:32)
[2018-04-13 22:53] VITALS: BP 143/91
[2018-04-13 23:30] LABS: TROPONIN I 0.308 ng/mL (0.000-0.045)
[2018-04-14 01:43] VITALS: BP 143/95
[2018-04-14] MEDS: ACETAMINOPHEN 325 MG TABLET PO PRN ×2 (02:02→13:36)
[2018-04-14 05:43] LABS: CHLORIDE 115 mmol/L (98-107)
[2018-04-14 05:44] LABS: BASOPHILS # (AUTO) 0.02 x10^3/uL (0-0.1); BASOPHILS % (AUTO) 0 % (0-1); EOSINOPHILS # (AUTO) 0.05 x10^3/uL (0-0.4); EOSINOPHILS % (AUTO) 1 % (1-7); LYMPHOCYTES # (AUTO) 1.12 x10^3/uL (1-3.4); LYMPHOCYTES % (AUTO) 18 % (22-44); MD NO; MEAN CORPUSCULAR HEMOGLOBIN 31.2 pg (27.0-34.8); MEAN CORPUSCULAR HGB CONC 33.4 g/dL (32.4-35.8); MEAN CORPUSCULAR VOLUME 93.4 fL (80-100); MEAN PLATELET VOLUME 8.1 fL (7.4-10.4); MONOCYTES # (AUTO) 0.34 x10^3/uL (0.2-0.8); MONOCYTES % (AUTO) 5 % (2-9); NEUTROPHILS # (AUTO) 4.77 x10^3/uL (1.8-6.8); NEUTROPHILS % (AUTO) 76 % (42-75); PLATELET COUNT 348 x10^3/uL (130-400); RED BLOOD COUNT 2.75 x10^6/uL (3.82-5.3); RED CELL DISTRIBUTION WIDTH 15.6 % (9.6-15.2)
[2018-04-14 05:56] LABS: ALANINE AMINOTRANSFERASE 13 U/L (12-78); ALBUMIN 1.8 g/dL (3.4-5.0); ALKALINE PHOSPHATASE 43 U/L (45-117); ANION GAP 8 mmol/L (5-15); BILIRUBIN,TOTAL 0.2 mg/dL (0.2-1.0); CALCIUM 7.3 mg/dL (8.5-10.1); CREATININE 2.08 mg/dL (0.55-1.02); TOTAL PROTEIN 4.9 g/dL (6.4-8.2); TROPONIN I 0.293 ng/mL (0.000-0.045)
[2018-04-14] MEDS: CARVEDILOL 25 MG TABLET PO SCH ×2 (06:15→17:39)
[2018-04-14 06:32] VITALS: BP 145/96
[2018-04-14] MEDS: SODIUM BICARBONATE 650 MG TABLET PO SCH ×2 (07:50→22:22)
[2018-04-14] MEDS: SPIRONOLACTONE 25 MG TABLET PO SCH (07:50)
[2018-04-14] MEDS: DOXYCYCLINE 100MG TABLET PO SCH ×2 (07:50→22:23)
[2018-04-14] MEDS: CHOLECALCIFEROL 5,000u TAB PO SCH (07:50)
[2018-04-14] MEDS: CEFTRIAXONE 2 GM in SODIUM CHLORIDE 0.9% 50 ML IV SCH (07:51)
[2018-04-14] MEDS: PANTOPROZOLE 40MG TABLET PO SCH (07:51)
[2018-04-14] MEDS: AMLODIPINE 5 MG TABLET PO SCH ×2 (07:51→22:22)
[2018-04-14] MEDS: ISOSORBIDE MONONITRATE ER 30 MG TABLET PO SCH (07:51)
[2018-04-14] MEDS: morphine SULFATE 10 MG/ML, 1ML IVPush PRN (08:07)
[2018-04-14 14:24] VITALS: BP 133/88
[2018-04-14 17:36] VITALS: BP 156/107
[2018-04-14 18:35] VITALS: BP 154/98
[2018-04-14] MEDS: ONDANSETRON ODT 4 MG PO PRN (19:44)
[2018-04-14] MEDS: HYDROcodone/APAP 5/325 TABLET PO PRN (19:48)
[2018-04-15 00:34] VITALS: BP 133/84
[2018-04-15 05:25] VITALS: BP 149/103
[2018-04-15] MEDS: ACETAMINOPHEN 325 MG TABLET PO PRN (05:26)
[2018-04-15] MEDS: CARVEDILOL 25 MG TABLET PO SCH ×2 (05:27→16:30)
[2018-04-15 05:41] LABS: CHLORIDE 116 mmol/L (98-107)
[2018-04-15 05:52] LABS: ALANINE AMINOTRANSFERASE 11 U/L (12-78); ALKALINE PHOSPHATASE 45 U/L (45-117); ANION GAP 9 mmol/L (5-15); BILIRUBIN,TOTAL 0.3 mg/dL (0.2-1.0); CREATININE 2.21 mg/dL (0.55-1.02); TOTAL PROTEIN 5.2 g/dL (6.4-8.2)
[2018-04-15 05:59] LABS: BASOPHILS # (AUTO) 0.02 x10^3/uL (0-0.1); BASOPHILS % (AUTO) 1 % (0-1); EOSINOPHILS # (AUTO) 0.08 x10^3/uL (0-0.4); EOSINOPHILS % (AUTO) 2 % (1-7); LYMPHOCYTES # (AUTO) 1.17 x10^3/uL (1-3.4); LYMPHOCYTES % (AUTO) 29 % (22-44); MD NO; MEAN CORPUSCULAR HEMOGLOBIN 31.2 pg (27.0-34.8); MEAN CORPUSCULAR HGB CONC 33.7 g/dL (32.4-35.8); MEAN CORPUSCULAR VOLUME 92.5 fL (80-100); MEAN PLATELET VOLUME 8.2 fL (7.4-10.4); MONOCYTES # (AUTO) 0.22 x10^3/uL (0.2-0.8); MONOCYTES % (AUTO) 6 % (2-9); NEUTROPHILS # (AUTO) 2.56 x10^3/uL (1.8-6.8); NEUTROPHILS % (AUTO) 63 % (42-75); PLATELET COUNT 347 x10^3/uL (130-400); RED BLOOD COUNT 2.84 x10^6/uL (3.82-5.3); RED CELL DISTRIBUTION WIDTH 14.5 % (9.6-15.2)
[2018-04-15 07:25] VITALS: BP 126/84
[2018-04-15] MEDS ORDERED: REGADENOSON 0.4 MG/5 ML SYRINGE ONE (08:05)
[2018-04-15 08:16] LABS: TROPONIN I 0.148 ng/mL (0.000-0.045)
[2018-04-15] MEDS: ISOSORBIDE MONONITRATE ER 30 MG TABLET PO SCH (09:00)
[2018-04-15] MEDS: PANTOPROZOLE 40MG TABLET PO SCH (09:43)
[2018-04-15] MEDS: SODIUM BICARBONATE 650 MG TABLET PO SCH ×2 (09:43→19:53)
[2018-04-15] MEDS: SPIRONOLACTONE 25 MG TABLET PO SCH (09:43)
[2018-04-15] MEDS: DOXYCYCLINE 100MG TABLET PO SCH ×2 (09:43→19:53)
[2018-04-15] MEDS: CHOLECALCIFEROL 5,000u TAB PO SCH (09:43)
[2018-04-15] MEDS: CEFTRIAXONE 2 GM in SODIUM CHLORIDE 0.9% 50 ML IV SCH (09:44)
[2018-04-15] MEDS: ONDANSETRON ODT 4 MG PO PRN ×2 (11:09→20:47)
[2018-04-15] MEDS: HYDROcodone/APAP 5/325 TABLET PO PRN ×2 (11:09→19:53)
[2018-04-15 13:14] VITALS: BP 139/93
[2018-04-15 16:30] VITALS: BP 138/87
[2018-04-15 19:51] VITALS: BP 128/84
[2018-04-16] VITALS (7 sets, daily range): BP systolic 141–165; BP diastolic 90–111
[2018-04-16 05:12] LABS: CHLORIDE 116 mmol/L (98-107)
[2018-04-16 05:20] LABS: BASOPHILS # (AUTO) 0.03 x10^3/uL (0-0.1); BASOPHILS % (AUTO) 1 % (0-1); EOSINOPHILS # (AUTO) 0.08 x10^3/uL (0-0.4); EOSINOPHILS % (AUTO) 2 % (1-7); LYMPHOCYTES # (AUTO) 1.26 x10^3/uL (1-3.4); LYMPHOCYTES % (AUTO) 38 % (22-44); MD NO; MEAN CORPUSCULAR HEMOGLOBIN 30.8 pg (27.0-34.8); MEAN CORPUSCULAR HGB CONC 33.4 g/dL (32.4-35.8); MEAN PLATELET VOLUME 7.8 fL (7.4-10.4); MONOCYTES # (AUTO) 0.22 x10^3/uL (0.2-0.8); MONOCYTES % (AUTO) 7 % (2-9); NEUTROPHILS # (AUTO) 1.73 x10^3/uL (1.8-6.8); NEUTROPHILS % (AUTO) 52 % (42-75); PLATELET COUNT 367 x10^3/uL (130-400); RED CELL DISTRIBUTION WIDTH 14.7 % (9.6-15.2)
[2018-04-16 05:23] LABS: ALANINE AMINOTRANSFERASE 13 U/L (12-78); ALBUMIN 1.9 g/dL (3.4-5.0); ALKALINE PHOSPHATASE 44 U/L (45-117); ANION GAP 9 mmol/L (5-15); BILIRUBIN,TOTAL 0.4 mg/dL (0.2-1.0); CALCIUM 7.9 mg/dL (8.5-10.1); CREATININE 2.32 mg/dL (0.55-1.02); TOTAL PROTEIN 5.2 g/dL (6.4-8.2)
[2018-04-16] MEDS: CARVEDILOL 25 MG TABLET PO SCH ×2 (06:05→17:10)
[2018-04-16] MEDS: ACETAMINOPHEN 325 MG TABLET PO PRN ×2 (06:06→20:59)
[2018-04-16] MEDS ORDERED: REGADENOSON 0.4 MG/5 ML SYRINGE ONE (08:33)
[2018-04-16] MEDS: ONDANSETRON ODT 4 MG PO PRN (08:36)
[2018-04-16] MEDS: PANTOPROZOLE 40MG TABLET PO SCH (08:36)
[2018-04-16] MEDS: CEFTRIAXONE 2 GM in SODIUM CHLORIDE 0.9% 50 ML IV SCH (08:37)
[2018-04-16] MEDS: SPIRONOLACTONE 25 MG TABLET PO SCH (10:38)
[2018-04-16] MEDS: SODIUM BICARBONATE 650 MG TABLET PO SCH ×2 (10:38→20:59)
[2018-04-16] MEDS: DOXYCYCLINE 100MG TABLET PO SCH ×2 (10:39→20:59)
[2018-04-16] MEDS: CHOLECALCIFEROL 5,000u TAB PO SCH (10:39)
[2018-04-16] MEDS: ISOSORBIDE MONONITRATE ER 30 MG TABLET PO SCH (10:39)
[2018-04-17 03:06] VITALS: BP 136/83
[2018-04-17 05:19] LABS: MEAN CORPUSCULAR HEMOGLOBIN 31.5 pg (27.0-34.8); MEAN CORPUSCULAR HGB CONC 34.1 g/dL (32.4-35.8); MEAN CORPUSCULAR VOLUME 92.5 fL (80-100); MEAN PLATELET VOLUME 7.8 fL (7.4-10.4); PLATELET COUNT 400 x10^3/uL (130-400); RED BLOOD COUNT 3.05 x10^6/uL (3.82-5.3); RED CELL DISTRIBUTION WIDTH 14.9 % (9.6-15.2)
[2018-04-17 05:23] LABS: CHLORIDE 114 mmol/L (98-107)
[2018-04-17 05:30] LABS: ALANINE AMINOTRANSFERASE 13 U/L (12-78); ALBUMIN 2.3 g/dL (3.4-5.0); ALKALINE PHOSPHATASE 50 U/L (45-117); ANION GAP 6 mmol/L (5-15); BILIRUBIN,TOTAL 0.2 mg/dL (0.2-1.0); CREATININE 2.43 mg/dL (0.55-1.02); TOTAL PROTEIN 5.8 g/dL (6.4-8.2)
[2018-04-17] MEDS: CARVEDILOL 25 MG TABLET PO SCH ×2 (06:16→17:31)
[2018-04-17 06:19] LABS: BASOPHILS # (AUTO) 0.01 x10^3/uL (0-0.1); BASOPHILS % (AUTO) 0 % (0-1); EOSINOPHILS % (AUTO) 0 % (1-7); LYMPHOCYTES # (AUTO) 0.65 x10^3/uL (1-3.4); LYMPHOCYTES % (AUTO) 30 % (22-44); MD SCAN; MONOCYTES # (AUTO) 0.05 x10^3/uL (0.2-0.8); MONOCYTES % (AUTO) 2 % (2-9); NEUTROPHILS # (AUTO) 1.44 x10^3/uL (1.8-6.8); NEUTROPHILS % (AUTO) 67 % (42-75)
[2018-04-17 07:10] VITALS: BP 149/96
[2018-04-17] MEDS: PANTOPROZOLE 40MG TABLET PO SCH (07:44)
[2018-04-17] MEDS: ONDANSETRON ODT 4 MG PO PRN (07:44)
[2018-04-17] MEDS: CHOLECALCIFEROL 5,000u TAB PO SCH (09:06)
[2018-04-17] MEDS: SPIRONOLACTONE 25 MG TABLET PO SCH (09:06)
[2018-04-17] MEDS: CEFTRIAXONE 2 GM in SODIUM CHLORIDE 0.9% 50 ML IV SCH (09:06)
[2018-04-17] MEDS: SODIUM BICARBONATE 650 MG TABLET PO SCH ×2 (09:06→21:10)
[2018-04-17] MEDS: DOXYCYCLINE 100MG TABLET PO SCH ×2 (09:06→21:10)
[2018-04-17] MEDS: ISOSORBIDE MONONITRATE ER 30 MG TABLET PO SCH (09:07)
[2018-04-17 09:32] LABS: INTERNATIONAL NORMALIZED RATIO 0.95 (0.93-1.1); PROTHROMBIN TIME 9.8 Seconds (9.6-11.5)
[2018-04-17] MEDS ORDERED: LIDOCAINE-MPF 2%, 2ML ONE (11:41)
[2018-04-17] MEDS: HYDROcodone/APAP 5/325 TABLET PO PRN (14:00)
[2018-04-17 14:02] VITALS: BP 154/93
[2018-04-17 19:02] VITALS: BP 135/89
[2018-04-18 01:20] VITALS: BP 132/78
[2018-04-18 05:26] LABS: MEAN CORPUSCULAR HGB CONC 33.4 g/dL (32.4-35.8); MEAN CORPUSCULAR VOLUME 92.7 fL (80-100); MEAN PLATELET VOLUME 7.8 fL (7.4-10.4); PLATELET COUNT 376 x10^3/uL (130-400); RED BLOOD COUNT 2.77 x10^6/uL (3.82-5.3); RED CELL DISTRIBUTION WIDTH 14.5 % (9.6-15.2)
[2018-04-18 05:33] LABS: ALBUMIN 2.1 g/dL (3.4-5.0); ANION GAP 7 mmol/L (5-15); CALCIUM 7.8 mg/dL (8.5-10.1); CHLORIDE 111 mmol/L (98-107)
[2018-04-18 05:36] LABS: ALANINE AMINOTRANSFERASE 11 U/L (12-78); ALKALINE PHOSPHATASE 47 U/L (45-117); BILIRUBIN,TOTAL 0.1 mg/dL (0.2-1.0); TOTAL PROTEIN 5.4 g/dL (6.4-8.2)
[2018-04-18] MEDS: CARVEDILOL 25 MG TABLET PO SCH ×2 (05:47→18:19)
[2018-04-18 05:50] LABS: BASOPHILS # (AUTO) 0.01 x10^3/uL (0-0.1); BASOPHILS % (AUTO) 1 % (0-1); EOSINOPHILS % (AUTO) 0 % (1-7); LYMPHOCYTES # (AUTO) 0.76 x10^3/uL (1-3.4); LYMPHOCYTES % (AUTO) 29 % (22-44); MD SCAN; MONOCYTES # (AUTO) 0.09 x10^3/uL (0.2-0.8); MONOCYTES % (AUTO) 3 % (2-9); NEUTROPHILS # (AUTO) 1.78 x10^3/uL (1.8-6.8); NEUTROPHILS % (AUTO) 68 % (42-75)
[2018-04-18 08:42] VITALS: BP 145/99
[2018-04-18] MEDS: DOXYCYCLINE 100MG TABLET PO SCH ×2 (09:15→21:20)
[2018-04-18] MEDS: SODIUM BICARBONATE 650 MG TABLET PO SCH ×2 (09:15→21:20)
[2018-04-18] MEDS: PANTOPROZOLE 40MG TABLET PO SCH (09:16)
[2018-04-18] MEDS: CHOLECALCIFEROL 5,000u TAB PO SCH (09:16)
[2018-04-18] MEDS: CEFTRIAXONE 2 GM in SODIUM CHLORIDE 0.9% 50 ML IV SCH (09:17)
[2018-04-18] MEDS ORDERED: FUROSEMIDE 40 MG/4 ML ONE (09:19)
[2018-04-18] MEDS ORDERED: FUROSEMIDE 40 MG/4 ML IV ONE (09:30)
[2018-04-18 14:50] VITALS: BP 146/92
[2018-04-18 18:18] VITALS: BP 159/99
[2018-04-18 19:33] VITALS: BP 154/96
[2018-04-18] MEDS: ACETAMINOPHEN 325 MG TABLET PO PRN (21:21)
[2018-04-18 21:52] LABS: CREATININE,URINE RANDOM 73.2 mg/dL
[2018-04-18] MEDS: HYDROcodone/APAP 5/325 TABLET PO PRN (23:39)
[2018-04-19 01:03] VITALS: BP 141/91
[2018-04-19] MEDS: CARVEDILOL 25 MG TABLET PO SCH ×2 (06:01→17:36)
[2018-04-19 07:17] LABS: ALBUMIN 2.1 g/dL (3.4-5.0); ANION GAP 7 mmol/L (5-15); CALCIUM 7.8 mg/dL (8.5-10.1); CHLORIDE 109 mmol/L (98-107)
[2018-04-19 07:21] LABS: ALANINE AMINOTRANSFERASE 11 U/L (12-78); ALKALINE PHOSPHATASE 40 U/L (45-117); BILIRUBIN,TOTAL 0.1 mg/dL (0.2-1.0); CREATININE 2.12 mg/dL (0.55-1.02)
[2018-04-19 08:15] VITALS: BP 146/94
[2018-04-19] MEDS ORDERED: FUROSEMIDE 40 MG/4 ML IV ONE (09:00)
[2018-04-19] MEDS: PANTOPROZOLE 40MG TABLET PO SCH (09:42)
[2018-04-19] MEDS: CEFTRIAXONE 2 GM in SODIUM CHLORIDE 0.9% 50 ML IV SCH (09:42)
[2018-04-19] MEDS: DOXYCYCLINE 100MG TABLET PO SCH ×2 (09:44→21:00)
[2018-04-19] MEDS: SODIUM BICARBONATE 650 MG TABLET PO SCH ×2 (09:44→20:59)
[2018-04-19] MEDS: CHOLECALCIFEROL 5,000u TAB PO SCH (09:45)
[2018-04-19 13:42] VITALS: BP 154/102
[2018-04-19 16:12] VITALS: BP 154/108
[2018-04-19 19:29] VITALS: BP 154/106
[2018-04-19 20:55] VITALS: BP 128/95
[2018-04-19] MEDS: ACETAMINOPHEN 325 MG TABLET PO PRN (21:00)
[2018-04-20] VITALS (7 sets, daily range): BP systolic 137–156; BP diastolic 85–104
[2018-04-20 05:23] LABS: MEAN CORPUSCULAR HEMOGLOBIN 30.5 pg (27.0-34.8); MEAN CORPUSCULAR HGB CONC 33.5 g/dL (32.4-35.8); MEAN CORPUSCULAR VOLUME 91.1 fL (80-100); MEAN PLATELET VOLUME 7.6 fL (7.4-10.4); PLATELET COUNT 391 x10^3/uL (130-400); RED BLOOD COUNT 3.02 x10^6/uL (3.82-5.3); RED CELL DISTRIBUTION WIDTH 13.6 % (9.6-15.2)
[2018-04-20 05:26] LABS: CHLORIDE 109 mmol/L (98-107)
[2018-04-20 05:36] LABS: ALANINE AMINOTRANSFERASE 9 U/L (12-78); ALKALINE PHOSPHATASE 39 U/L (45-117); ANION GAP 7 mmol/L (5-15); BILIRUBIN,TOTAL 0.6 mg/dL (0.2-1.0); CALCIUM 7.6 mg/dL (8.5-10.1); CREATININE 2.35 mg/dL (0.55-1.02); TOTAL PROTEIN 4.9 g/dL (6.4-8.2)
[2018-04-20] MEDS: CARVEDILOL 25 MG TABLET PO SCH ×2 (05:45→16:55)
[2018-04-20] MEDS: TORSEMIDE 20 MG TABLET PO SCH ×2 (05:46→08:39)
[2018-04-20 06:17] LABS: MD YES
[2018-04-20 06:20] LABS: BAND#(MANUAL) 0.05 x10^3/uL; BANDS%(MANUAL) 2 % (0-7); LYMPHS% (MANUAL) 54 % (22-44); MONOS#(MANUAL) 0.23 x10^3/uL (0.3-2.7); MONOS% (MANUAL) 9 % (2-9); SEG#(MANUAL) 0.91 x10^3/uL (1.8-6.8); SEGS% (MANUAL) 35 % (42-75)
[2018-04-20 06:23] LABS: <PLATELET ESTIMATE> ADEQUATE; <PLT MORPHOLOGY> NORMAL PLT MORPH; <RBC MORPHOLOGY> NORMAL
[2018-04-20] MEDS: CEFTRIAXONE 2 GM in SODIUM CHLORIDE 0.9% 50 ML IV SCH (08:39)
[2018-04-20] MEDS: DOXYCYCLINE 100MG TABLET PO SCH ×2 (08:40→20:22)
[2018-04-20] MEDS: CHOLECALCIFEROL 5,000u TAB PO SCH (08:40)
[2018-04-20] MEDS: SODIUM BICARBONATE 650 MG TABLET PO SCH ×2 (08:40→20:22)
[2018-04-20] MEDS: PANTOPROZOLE 40MG TABLET PO SCH (08:40)
[2018-04-20] MEDS: ACETAMINOPHEN 325 MG TABLET PO PRN (22:15)
[2018-04-21 02:30] VITALS: BP 146/82
[2018-04-21] MEDS: CARVEDILOL 25 MG TABLET PO SCH ×2 (05:47→16:24)
[2018-04-21 06:00] LABS: CHLORIDE 107 mmol/L (98-107)
[2018-04-21 06:06] LABS: ANION GAP 10 mmol/L (5-15); CALCIUM 7.8 mg/dL (8.5-10.1); CREATININE 1.98 mg/dL (0.55-1.02)
[2018-04-21 07:23] VITALS: BP 148/90
[2018-04-21] MEDS: CEFTRIAXONE 2 GM in SODIUM CHLORIDE 0.9% 50 ML IV SCH ×2 (09:00→09:33)
[2018-04-21] MEDS: SODIUM BICARBONATE 650 MG TABLET PO SCH (09:33)
[2018-04-21] MEDS: TORSEMIDE 20 MG TABLET PO SCH (09:34)
[2018-04-21] MEDS: PANTOPROZOLE 40MG TABLET PO SCH (09:34)
[2018-04-21] MEDS: CHOLECALCIFEROL 5,000u TAB PO SCH (09:34)
[2018-04-21] MEDS: DOXYCYCLINE 100MG TABLET PO SCH (09:35)
[2018-04-21] MEDS ORDERED: DIPHENHYDRAMINE/ZINC CRM 2%, 30GM TP PRN (11:00)
[2018-04-21 14:39] VITALS: BP 144/81
[2018-04-21] MEDS ORDERED: TORS20TA PO (15:04)
[2018-04-21] MEDS ORDERED: POLY17PO5 PO (15:04)
[2018-04-21] MEDS ORDERED: HYDR-3343 PO (15:04)
[2018-04-22] MEDS ORDERED: TORSEMIDE 20 MG TABLET PO SCH (09:00)
== END 2018-04-21 18:15 | disposition home or self-care (01) | DRG 545 ==
LOC: ED 20:33 → EDIP 20:35 → 4WST 20:47 → 5SO 04-14 11:03
PROVIDERS: ADMIT Hospitalist; ATTEND Internal Medicine
PROC: 0W9B3ZZ Drainage of Left Pleural Cavity, Percutaneous Approach (ICD-10-PCS; principal; 2018-04-13)
PROC: 0W9B3ZZ Drainage of Left Pleural Cavity, Percutaneous Approach (ICD-10-PCS; 2018-04-17)
DX: M32.14 Glomerular disease in systemic lupus erythematosus (principal); J18.9 Pneumonia, unspecified organism; E43 Unspecified severe protein-calorie malnutrition; J96.00 Acute respiratory failure, unspecified whether with hypoxia or hypercapnia; E87.2 Acidosis; I13.0 Hypertensive heart and chronic kidney disease with heart failure and stage 1 through stage 4 chronic kidney disease, or unspecified chronic kidney disease; I50.20 Unspecified systolic (congestive) heart failure; N18.4 Chronic kidney disease, stage 4 (severe); J90 Pleural effusion, not elsewhere classified; D63.8 Anemia in other chronic diseases classified elsewhere; E87.5 Hyperkalemia; Z79.52 Long term (current) use of systemic steroids; Z87.891 Personal history of nicotine dependence; Z68.25 Body mass index [BMI] 25.0-25.9, adult; Z87.440 Personal history of urinary (tract) infections
CPT/HCPCS: 32555; 36415; 71045; 78452; 80048; 80053; 82570; 83735; 84100; 84156; 84484; 85025; 85610; 86160; 87040; 88112; 88305; 93005; 93017; 93308; 93321; 93325; 96374; 96376; G0378; J0696; J1885; J1940; J2785; J3490; Q0162; A9502; C9898; J0360; J2270; J7512

== ENCOUNTER 2018-04-28 19:01 | Inpatient (IN) | payer OTHER ==
[~2018-04-28] VITALS: Ht 165.1 cm; Wt 64.8 kg
[~2018-04-28 19:01] MED LIST changes: +POLY17PO5 PO; +TORS20TA PO
[2018-04-28 19:48] LABS: MEAN CORPUSCULAR HEMOGLOBIN 31.3 pg (27.0-34.8); MEAN CORPUSCULAR HGB CONC 34.1 g/dL (32.4-35.8); MEAN CORPUSCULAR VOLUME 91.8 fL (80-100); MEAN PLATELET VOLUME 7.6 fL (7.4-10.4); PLATELET COUNT 253 x10^3/uL (130-400); RED BLOOD COUNT 2.64 x10^6/uL (3.82-5.3); RED CELL DISTRIBUTION WIDTH 13.9 % (9.6-15.2)
[2018-04-28 19:59] LABS: ALBUMIN 2.5 g/dL (3.4-5.0); ANION GAP 9 mmol/L (5-15); CALCIUM 8.3 mg/dL (8.5-10.1); CHLORIDE 112 mmol/L (98-107)
[2018-04-28 20:12] LABS: MD YES
[2018-04-28 20:15] LABS: <PLATELET ESTIMATE> ADEQUATE; <PLT MORPHOLOGY> NORMAL PLT MORPH; <RBC MORPHOLOGY> NORMAL; BAND#(MANUAL) 0.26 x10^3/uL; BANDS%(MANUAL) 11 % (0-7); EOS#(MANUAL) 0.02 x10^3/uL (0.0-0.4); EOS% (MANUAL) 1 % (1-7); LYMPHS% (MANUAL) 50 % (22-44); METAMYELOCYTES# (MANUAL) 0.05 x10^3/uL (0-0); METAMYELOCYTES% (MANUAL) 2 % (0-1); MONOS#(MANUAL) 0.46 x10^3/uL (0.3-2.7); MONOS% (MANUAL) 19 % (2-9); MYELOCYTES# (MANUAL) 0.05 x10^3/uL (0-0); MYELOCYTES% (MANUAL) 2 % (0-0); SEG#(MANUAL) 0.36 x10^3/uL (1.8-6.8); SEGS% (MANUAL) 15 % (42-75)
[2018-04-28] MEDS ORDERED: CLON0.2T PO (20:15)
[2018-04-28] MEDS ORDERED: LIDOCAINE-MPF 2%, 2ML ONE (21:12)
[2018-04-28] MEDS ORDERED: FILGRASTIM 300 MCG/ML SQ ONE (22:30)
[2018-04-29] MEDS ORDERED: POLYETHYLENE GLYCOL 17 GM PACKET PO PRN
[2018-04-29] MEDS ORDERED: ONDANSETRON ODT 4 MG PO PRN
[2018-04-29] MEDS ORDERED: SODIUM CHLORIDE FLUSH 10ML SYR IVF PRN
[2018-04-29] MEDS ORDERED: ACETAMINOPHEN 325 MG TABLET PO PRN
[2018-04-29] MEDS ORDERED: BISACODYL 10 MG SUPP PR PRN
[2018-04-29] MEDS ORDERED: HYDROcodone/APAP 10/325 MG TABLET ONE (00:54)
[2018-04-29] MEDS: SODIUM CHLORIDE FLUSH 10ML SYR IVF SCH ×3 (00:55→20:38)
[2018-04-29] MEDS: HYDROcodone/APAP 10/325 MG TABLET PO PRN ×4 (00:56→18:19)
[2018-04-29] MEDS: HEPARIN 5,000 UNITS/ML, 1ML SQ SCH ×3 (00:57→17:15)
[2018-04-29 01:00] VITALS: BP 139/89
[2018-04-29] MEDS ORDERED: SODI650T PO (01:08)
[2018-04-29 03:58] VITALS: BP 109/56
[2018-04-29 05:14] LABS: MEAN CORPUSCULAR HEMOGLOBIN 30.6 pg (27.0-34.8); MEAN CORPUSCULAR HGB CONC 33.5 g/dL (32.4-35.8); MEAN CORPUSCULAR VOLUME 91.4 fL (80-100); MEAN PLATELET VOLUME 7.3 fL (7.4-10.4); PLATELET COUNT 240 x10^3/uL (130-400); RED BLOOD COUNT 2.59 x10^6/uL (3.82-5.3); RED CELL DISTRIBUTION WIDTH 14.1 % (9.6-15.2)
[2018-04-29 05:21] LABS: CHLORIDE 114 mmol/L (98-107)
[2018-04-29 05:49] LABS: ALANINE AMINOTRANSFERASE 23 U/L (12-78); ALBUMIN 2.1 g/dL (3.4-5.0); ALKALINE PHOSPHATASE 66 U/L (45-117); ANION GAP 10 mmol/L (5-15); BILIRUBIN,TOTAL 0.2 mg/dL (0.2-1.0); CALCIUM 8.4 mg/dL (8.5-10.1)
[2018-04-29 06:00] LABS: MD YES
[2018-04-29 06:19] LABS: <PLATELET ESTIMATE> ADEQUATE; <PLT MORPHOLOGY> NORMAL PLT MORPH; <RBC MORPHOLOGY> NORMAL; BANDS%(MANUAL) 14 % (0-7); BASOS#(MANUAL) 0.07 x10^3/uL (0-0.1); BASOS% (MANUAL) 2 % (0-1); LYMPH#(MANUAL) 1.44 x10^3/uL (1-3.4); LYMPHS% (MANUAL) 40 % (22-44); METAMYELOCYTES# (MANUAL) 0.07 x10^3/uL (0-0); METAMYELOCYTES% (MANUAL) 2 % (0-1); SEG#(MANUAL) 1.51 x10^3/uL (1.8-6.8); SEGS% (MANUAL) 42 % (42-75)
[2018-04-29] MEDS: CARVEDILOL 25 MG TABLET PO SCH ×2 (06:43→17:15)
[2018-04-29 08:00] VITALS: BP 130/86
[2018-04-29] MEDS: PANTOPROZOLE 40MG TABLET PO SCH (08:19)
[2018-04-29] MEDS: SENNA/DOCUSATE TABLET PO SCH (08:19)
[2018-04-29] MEDS: TORSEMIDE 20 MG TABLET PO SCH (08:20)
[2018-04-29] MEDS: CHOLECALCIFEROL 5,000u TAB PO SCH (08:20)
[2018-04-29 14:22] VITALS: BP 118/70
[2018-04-29 20:36] VITALS: BP 142/82
[2018-04-29] MEDS: FILGRASTIM 300 MCG/ML SQ SCH (22:40)
[2018-04-30] MEDS: HEPARIN 5,000 UNITS/ML, 1ML SQ SCH ×3 (01:30→17:00)
[2018-04-30 03:21] VITALS: BP 124/72
[2018-04-30 04:17] VITALS: BP 124/72
[2018-04-30] MEDS: CARVEDILOL 25 MG TABLET PO SCH ×2 (06:00→17:00)
[2018-04-30 07:12] VITALS: BP 166/66
[2018-04-30] MEDS: PANTOPROZOLE 40MG TABLET PO SCH (08:25)
[2018-04-30] MEDS: TORSEMIDE 20 MG TABLET PO SCH (08:25)
[2018-04-30] MEDS: SODIUM CHLORIDE FLUSH 10ML SYR IVF SCH (08:26)
[2018-04-30] MEDS: CHOLECALCIFEROL 5,000u TAB PO SCH (08:26)
[2018-04-30] MEDS: SENNA/DOCUSATE TABLET PO SCH (08:26)
[2018-04-30] MEDS: FILGRASTIM 300 MCG/ML SQ SCH (08:26)
[2018-04-30 09:44] LABS: MEAN CORPUSCULAR HEMOGLOBIN 30.5 pg (27.0-34.8); MEAN CORPUSCULAR HGB CONC 33.5 g/dL (32.4-35.8); MEAN CORPUSCULAR VOLUME 91.2 fL (80-100); MEAN PLATELET VOLUME 7.9 fL (7.4-10.4); PLATELET COUNT 276 x10^3/uL (130-400); RED BLOOD COUNT 3.03 x10^6/uL (3.82-5.3); RED CELL DISTRIBUTION WIDTH 13.7 % (9.6-15.2)
[2018-04-30 09:45] LABS: ANION GAP 12 mmol/L (5-15); CALCIUM 8.3 mg/dL (8.5-10.1); CHLORIDE 109 mmol/L (98-107); CREATININE 2.66 mg/dL (0.55-1.02)
[2018-04-30 10:20] LABS: MD YES
[2018-04-30 10:25] LABS: BAND#(MANUAL) 0.97 x10^3/uL; BANDS%(MANUAL) 19 % (0-7); METAMYELOCYTES% (MANUAL) 2 % (0-1); SEG#(MANUAL) 2.04 x10^3/uL (1.8-6.8); SEGS% (MANUAL) 40 % (42-75)
[2018-04-30 10:26] LABS: LYMPH#(MANUAL) 1.79 x10^3/uL (1-3.4); LYMPHS% (MANUAL) 35 % (22-44); MONOS% (MANUAL) 4 % (2-9)
[2018-04-30 10:27] LABS: <RBC MORPHOLOGY> NORMAL
[2018-04-30 10:28] LABS: <PLATELET ESTIMATE> ADEQUATE; <PLT MORPHOLOGY> NORMAL PLT MORPH
[2018-04-30 14:49] VITALS: BP 123/68
[2018-04-30] MEDS ORDERED: PRED20TA PO (16:28)
[2018-04-30] MEDS ORDERED: TORS20TA PO (16:28)
== END 2018-04-30 17:42 | disposition home or self-care (01) | DRG 808 ==
LOC: ED 21:24 → EDIP 23:50 → 4EST 04-29 00:29
PROVIDERS: ADMIT Hospitalist; ATTEND Hospitalist
PROC: 0W9B3ZZ Drainage of Left Pleural Cavity, Percutaneous Approach (ICD-10-PCS; principal; 2018-04-28)
DX: D70.2 Other drug-induced agranulocytosis (principal); E43 Unspecified severe protein-calorie malnutrition; E87.2 Acidosis; I13.0 Hypertensive heart and chronic kidney disease with heart failure and stage 1 through stage 4 chronic kidney disease, or unspecified chronic kidney disease; I50.22 Chronic systolic (congestive) heart failure; I42.9 Cardiomyopathy, unspecified; I31.4 Cardiac tamponade; N18.4 Chronic kidney disease, stage 4 (severe); I38 Endocarditis, valve unspecified; J90 Pleural effusion, not elsewhere classified; T45.1X5A Adverse effect of antineoplastic and immunosuppressive drugs, initial encounter; Y92.89 Other specified places as the place of occurrence of the external cause; D63.1 Anemia in chronic kidney disease; D72.825 Bandemia; M32.14 Glomerular disease in systemic lupus erythematosus; Z80.3 Family history of malignant neoplasm of breast; Z91.19 Patient's noncompliance with other medical treatment and regimen; Z79.899 Other long term (current) drug therapy; E83.51 Hypocalcemia; Z68.23 Body mass index [BMI] 23.0-23.9, adult
CPT/HCPCS: 32555; 36415; 71045; 80048; 80053; 82040; 85025; 93308; 93321; 96372; 99285; G0378; J1442; J1644; J7512

== ENCOUNTER 2018-07-14 09:39 | Emergency (ER) | payer OTHER ==
[~2018-07-14] VITALS: Ht 165.1 cm; Wt 65.3 kg
[~2018-07-14 09:39] MED LIST changes: +AMLO-150 PO; -AMLO5TAB7 PO; +CLON0.2T PO
[2018-07-14 10:00] VITALS: BP 164/93
[2018-07-14] MEDS ORDERED: HYDROcodone/APAP 5/325 TABLET PO ONE (11:30)
[2018-07-14] MEDS ORDERED: HYDROcodone/APAP 5/325 TABLET ONE (11:33)
[2018-07-14 12:10] LABS: BASOPHILS # (AUTO) 0.12 x10^3/uL (0-0.1); BASOPHILS % (AUTO) 1 % (0-1); EOSINOPHILS # (AUTO) 0.11 x10^3/uL (0-0.4); EOSINOPHILS % (AUTO) 1 % (1-7); LYMPHOCYTES % (AUTO) 13 % (22-44); MD NO; MEAN CORPUSCULAR HEMOGLOBIN 31.1 pg (27.0-34.8); MEAN CORPUSCULAR VOLUME 91.4 fL (80-100); MEAN PLATELET VOLUME 8.1 fL (7.4-10.4); MONOCYTES % (AUTO) 7 % (2-9); NEUTROPHILS % (AUTO) 78 % (42-75); PLATELET COUNT 334 x10^3/uL (130-400); RED BLOOD COUNT 3.78 x10^6/uL (3.82-5.3)
[2018-07-14 12:23] LABS: ALANINE AMINOTRANSFERASE 15 U/L (12-78); ALKALINE PHOSPHATASE 59 U/L (45-117); ANION GAP 9 mmol/L (5-15); BILIRUBIN,TOTAL 0.2 mg/dL (0.2-1.0); CALCIUM 8.9 mg/dL (8.5-10.1); CHLORIDE 114 mmol/L (98-107); CREATININE 2.28 mg/dL (0.55-1.02); TOTAL PROTEIN 6.8 g/dL (6.4-8.2)
[2018-07-14 13:36] LABS: HCT (SEDRATE) 34.6 % (34.6-47.8)
[2018-07-14 14:38] LABS: MICROSCOPIC AUTO
[2018-07-14 14:49] LABS: CULTURE INDICATED? YES
== END 2018-07-14 14:26 | disposition home or self-care (01) ==
LOC: ED 12:04
DX: M79.662 Pain in left lower leg (principal); I50.9 Heart failure, unspecified; I11.0 Hypertensive heart disease with heart failure
CPT/HCPCS: 36415; 76857; 80053; 81001; 85025; 85651; 87040; 87086; 99284

== ENCOUNTER → 2019-01-30 | Outpatient (CLI) | payer OTHER | END | disposition home or self-care (01) | LOC: CFH 09:41 | PROVIDERS: ATTEND Internal Medicine Cardiovascular Disease | DX: I37.1 Nonrheumatic pulmonary valve insufficiency (principal) | CPT/HCPCS: 93306 ==

== ENCOUNTER 2019-03-07 21:10 | Emergency (ER) | payer OTHER ==
[~2019-03-07] VITALS: Ht 165.1 cm; Wt 78.8 kg
--- NOTE | 2019-03-07 21:30 | NUR ---
PT AMBULATORY TO ED ROOM 35 W/ STEADY GAIT
--- NOTE | 2019-03-07 21:37 | NUR ---
A&OX4, RESP EVEN & UNLABORED, SPEECH CLEAR, SKIN WNL. PT TEARY. STATES SHE EXPERIENCED UPPER CHEST PAIN W/ RT ARM NUMBNESS ABOUT 2 HRS [employer]IX[employer]; WAS SITTING DOING HOMEWORK AT THAT TIME. DENIES TAKING PAIN MED, ASA. REPORTS RECENT COUGH. CARDIAC & VS MONITORING EQUIPMENT APPLIED. DR MEDRANO NOW AT FOR EXAM. Addendum: 03/07/19 at 2145 by RODRI LMP: "I DON'T GET THEM, I HAVE AN IUD"
[2019-03-07] MEDS ORDERED: GABA300C10 PO (21:48)
[2019-03-07] MEDS ORDERED: HYDROcodone/APAP 5/325 TABLET ONE (21:59)
[2019-03-07] MEDS ORDERED: HYDROcodone/APAP 5/325 TABLET PO ONE (22:00)
[2019-03-07 22:05] LABS: BASOPHILS # (AUTO) 0.04 x10^3/uL (0-0.1); BASOPHILS % (AUTO) 1 % (0-1); EOSINOPHILS # (AUTO) 0.09 x10^3/uL (0-0.4); EOSINOPHILS % (AUTO) 2 % (1-7); LYMPHOCYTES # (AUTO) 2.17 x10^3/uL (1-3.4); LYMPHOCYTES % (AUTO) 34 % (22-44); MD NO; MEAN CORPUSCULAR HEMOGLOBIN 30.8 pg (27.0-34.8); MEAN CORPUSCULAR HGB CONC 33.5 g/dL (32.4-35.8); MEAN CORPUSCULAR VOLUME 92.2 fL (80-100); MEAN PLATELET VOLUME 8.5 fL (7.4-10.4); MONOCYTES # (AUTO) 0.65 x10^3/uL (0.2-0.8); MONOCYTES % (AUTO) 10 % (2-9); NEUTROPHILS # (AUTO) 3.36 x10^3/uL (1.8-6.8); NEUTROPHILS % (AUTO) 53 % (42-75); PLATELET COUNT 271 x10^3/uL (130-400); RED BLOOD COUNT 3.95 x10^6/uL (3.82-5.3); RED CELL DISTRIBUTION WIDTH 12.5 % (9.6-15.2)
[2019-03-07 22:13] LABS: INTERNATIONAL NORMALIZED RATIO 0.96 (0.93-1.1); PROTHROMBIN TIME 10.1 Seconds (9.6-11.5)
[2019-03-07 22:14] LABS: ALANINE AMINOTRANSFERASE 24 U/L (12-78); ALBUMIN 3.4 g/dL (3.4-5.0); ANION GAP 7 mmol/L (5-15); CALCIUM 8.8 mg/dL (8.5-10.1); CHLORIDE 112 mmol/L (98-107); CREATININE 1.88 mg/dL (0.55-1.02)
[2019-03-07 22:18] LABS: ALKALINE PHOSPHATASE 82 U/L (45-117); BILIRUBIN,TOTAL 0.2 mg/dL (0.2-1.0); TOTAL PROTEIN 7.1 g/dL (6.4-8.2)
--- NOTE | 2019-03-07 22:20 | NUR ---
SITTING QUIETLY ON BED, RESP EVEN & UNLABORED, NO COUGH NOTED, CARDIAC & VS MONITORING CONTINUING (NSR), SIDE RAIL UP X1, CALL LIGHT W/IN REACH.
[2019-03-07 22:47] VITALS: BP 115/66
--- NOTE | 2019-03-07 22:52 | NUR ---
DR MEDRANO BS TO DISCUSS POC
--- NOTE | 2019-03-07 22:56 | NUR ---
PT REPORT TO FUNMILAYO IBARRA. PT CARE TRANSFERRED.
--- NOTE | 2019-03-07 23:15 | NUR ---
Assumed care for discharge home. Pt is alert, vitals stable, denies pain, exitcare reviewed and pt verbalizes understanding. Ambulates w/ steady gait to discharge desk.
== END 2019-03-07 23:16 | disposition home or self-care (01) ==
LOC: ED 23:15
DX: R07.89 Other chest pain (principal)
CPT/HCPCS: 36415; 71045; 80053; 84484; 85025; 85610; 85730; 93005; 99284

== ENCOUNTER 2019-03-15 08:12 | Outpatient (CLI) | payer OTHER | END 2019-03-15 23:59 | disposition home or self-care (01) | LOC: LAB 08:12 | PROVIDERS: ATTEND Internal Medicine Nephrology | DX: Z11.1 Encounter for screening for respiratory tuberculosis (principal); R53.83 Other fatigue; M32.9 Systemic lupus erythematosus, unspecified; M25.561 Pain in right knee; I13.0 Hypertensive heart and chronic kidney disease with heart failure and stage 1 through stage 4 chronic kidney disease, or unspecified chronic kidney disease; N18.9 Chronic kidney disease, unspecified; I50.9 Heart failure, unspecified; Z79.899 Other long term (current) drug therapy | CPT/HCPCS: 36415; 80053; 80061; 81001; 82306; 82570; 82607; 82728; 82746; 83036; 83540; 83550; 83880; 84156; 84207; 84425; 84439; 84443; 84466; 84481; 85025; 86160; 86200; 86225; 86376; 86430; 86480; 86800 ==

== ENCOUNTER 2019-03-21 16:08 | Outpatient (CLI) | payer OTHER | END 2019-03-21 23:59 | disposition home or self-care (01) | LOC: CFH 16:08 | PROVIDERS: ATTEND Nurse Practitioner Primary Care | DX: M25.561 Pain in right knee (principal); M25.562 Pain in left knee; I13.0 Hypertensive heart and chronic kidney disease with heart failure and stage 1 through stage 4 chronic kidney disease, or unspecified chronic kidney disease; N18.9 Chronic kidney disease, unspecified; I50.9 Heart failure, unspecified; Z79.899 Other long term (current) drug therapy ==

== ENCOUNTER 2019-05-31 09:13 | Outpatient (CLI) | payer OTHER ==
[~2019-05-31 09:13] MED LIST changes: +GABA300C10 PO
[2019-05-31 09:36] LABS: BASOPHILS # (AUTO) 0.03 x10^3/uL (0-0.1); BASOPHILS % (AUTO) 1 % (0-1); EOSINOPHILS % (AUTO) 2 % (1-7); LYMPHOCYTES % (AUTO) 32 % (22-44); MD NO; MEAN CORPUSCULAR HEMOGLOBIN 30.2 pg (27.0-34.8); MEAN CORPUSCULAR HGB CONC 32.6 g/dL (32.4-35.8); MEAN CORPUSCULAR VOLUME 92.7 fL (80-100); MEAN PLATELET VOLUME 7.9 fL (7.4-10.4); MONOCYTES # (AUTO) 0.41 x10^3/uL (0.2-0.8); MONOCYTES % (AUTO) 9 % (2-9); NEUTROPHILS # (AUTO) 2.46 x10^3/uL (1.8-6.8); NEUTROPHILS % (AUTO) 56 % (42-75); PLATELET COUNT 291 x10^3/uL (130-400); RED BLOOD COUNT 4.14 x10^6/uL (3.82-5.3); RED CELL DISTRIBUTION WIDTH 13.3 % (9.6-15.2)
[2019-05-31 09:45] LABS: ALANINE AMINOTRANSFERASE 16 U/L (12-78); ALBUMIN 3.4 g/dL (3.4-5.0); ANION GAP 5 mmol/L (5-15); CALCIUM 8.6 mg/dL (8.5-10.1); CHLORIDE 112 mmol/L (98-107); CREATININE 1.91 mg/dL (0.55-1.02)
[2019-05-31 09:48] LABS: ALKALINE PHOSPHATASE 109 U/L (45-117); BILIRUBIN,TOTAL 0.3 mg/dL (0.2-1.0); TOTAL PROTEIN 7.5 g/dL (6.4-8.2)
[2019-05-31 09:56] LABS: MICROSCOPIC AUTO
== END 2019-05-31 23:59 | disposition home or self-care (01) ==
LOC: LAB 09:13
PROVIDERS: ATTEND Internal Medicine Nephrology
DX: M32.9 Systemic lupus erythematosus, unspecified (principal); R80.9 Proteinuria, unspecified; M32.14 Glomerular disease in systemic lupus erythematosus; N18.3 Chronic kidney disease, stage 3 (moderate); D63.1 Anemia in chronic kidney disease
CPT/HCPCS: 36415; 80053; 81001; 82570; 84156; 85025; 86160; 86162; 86225; 86355; 86357

== ENCOUNTER → 2019-06-27 | Outpatient (CLI) | payer OTHER ==
[2019-06-27 08:31] LABS: ALBUMIN 3.3 g/dL (3.4-5.0); ANION GAP 5 mmol/L (5-15); CALCIUM 8.7 mg/dL (8.5-10.1); CHLORIDE 113 mmol/L (98-107)
[2019-06-27 08:44] LABS: ALANINE AMINOTRANSFERASE 23 U/L (12-78); ALKALINE PHOSPHATASE 94 U/L (45-117); BILIRUBIN,TOTAL 0.3 mg/dL (0.2-1.0); CHOL/HDL RATIO 5.2; CHOLESTEROL, TOTAL 214 mg/dL (140-239); CREATININE 1.56 mg/dL (0.55-1.02); FREE T4 (FREE THYROXINE) 1.08 ng/dL (0.76-1.46); HDL CHOL % 19 % (28-40); HDL CHOLESTEROL (DIRECT) 41 mg/dL (40-60); LDL CHOLESTEROL,CALCULATED 132 mg/dL (54-169); LDL/HDL RATIO 3.2 (0.5-3.0); TOTAL PROTEIN 7.1 g/dL (6.4-8.2); TRIGLYCERIDES 204 mg/dL (50-200); VLDL CHOLESTEROL 41 mg/dL (0-25)
== END | disposition home or self-care (01) ==
LOC: LAB 07:41
PROVIDERS: ATTEND Nurse Practitioner Primary Care
DX: I13.0 Hypertensive heart and chronic kidney disease with heart failure and stage 1 through stage 4 chronic kidney disease, or unspecified chronic kidney disease (principal); I50.9 Heart failure, unspecified; N18.9 Chronic kidney disease, unspecified; R53.83 Other fatigue; M32.9 Systemic lupus erythematosus, unspecified; E03.9 Hypothyroidism, unspecified; E55.9 Vitamin D deficiency, unspecified; M25.561 Pain in right knee; Z79.899 Other long term (current) drug therapy
CPT/HCPCS: 36415; 80053; 80061; 82043; 82306; 83970; 84100; 84439; 84443; 84481

== ENCOUNTER 2019-08-21 07:36 | Outpatient (CLI) | payer OTHER ==
[2019-11-22] MEDS ORDERED: ERGO500017 PO (08:40)
[2019-11-22] MEDS ORDERED: LOSA25TA25 PO (08:40)
[2019-11-22] MEDS ORDERED: LEVO75TA PO (08:40)
[2019-11-22] MEDS ORDERED: CALC0.25 PO (08:40)
[2019-11-22] MEDS ORDERED: CITA20TA6 PO (08:40)
== END 2019-08-21 23:59 | disposition home or self-care (01) ==
LOC: RAD 07:36
PROVIDERS: ATTEND Nurse Practitioner Primary Care
DX: E03.9 Hypothyroidism, unspecified (principal); E55.9 Vitamin D deficiency, unspecified; I13.0 Hypertensive heart and chronic kidney disease with heart failure and stage 1 through stage 4 chronic kidney disease, or unspecified chronic kidney disease; N18.9 Chronic kidney disease, unspecified; I50.9 Heart failure, unspecified
CPT/HCPCS: 78070; A9500

== ENCOUNTER 2019-08-23 17:16 | Outpatient (CLI) | payer OTHER ==
[2019-08-23 17:49] LABS: BASOPHILS # (AUTO) 0.04 x10^3/uL (0-0.1); BASOPHILS % (AUTO) 1 % (0-1); EOSINOPHILS # (AUTO) 0.15 x10^3/uL (0-0.4); EOSINOPHILS % (AUTO) 2 % (1-7); LYMPHOCYTES # (AUTO) 2.62 x10^3/uL (1-3.4); LYMPHOCYTES % (AUTO) 31 % (22-44); MD NO; MEAN CORPUSCULAR HEMOGLOBIN 30.8 pg (27.0-34.8); MEAN CORPUSCULAR HGB CONC 33.3 g/dL (32.4-35.8); MEAN CORPUSCULAR VOLUME 92.6 fL (80-100); MEAN PLATELET VOLUME 8.1 fL (7.4-10.4); MONOCYTES # (AUTO) 0.49 x10^3/uL (0.2-0.8); MONOCYTES % (AUTO) 6 % (2-9); NEUTROPHILS # (AUTO) 5.09 x10^3/uL (1.8-6.8); NEUTROPHILS % (AUTO) 61 % (42-75); PLATELET COUNT 323 x10^3/uL (130-400); RED BLOOD COUNT 3.88 x10^6/uL (3.82-5.3); RED CELL DISTRIBUTION WIDTH 12.9 % (9.6-15.2)
[2019-08-23 17:52] LABS: MICROSCOPIC AUTO
[2019-08-23 18:02] LABS: ALANINE AMINOTRANSFERASE 18 U/L (12-78); ALBUMIN 3.1 g/dL (3.4-5.0); ANION GAP 8 mmol/L (5-15); CALCIUM 8.3 mg/dL (8.5-10.1); CHLORIDE 110 mmol/L (98-107); CREATININE 1.96 mg/dL (0.55-1.02)
[2019-08-23 18:11] LABS: ALKALINE PHOSPHATASE 99 U/L (45-117); BILIRUBIN,TOTAL 0.3 mg/dL (0.2-1.0); FREE T4 (FREE THYROXINE) 1.09 ng/dL (0.76-1.46); TOTAL PROTEIN 7.1 g/dL (6.4-8.2)
== END 2019-08-23 23:59 | disposition home or self-care (01) ==
LOC: LAB 17:16
PROVIDERS: ATTEND Internal Medicine Nephrology
DX: N18.3 Chronic kidney disease, stage 3 (moderate) (principal); D63.1 Anemia in chronic kidney disease; M32.14 Glomerular disease in systemic lupus erythematosus; M32.9 Systemic lupus erythematosus, unspecified; R80.9 Proteinuria, unspecified
CPT/HCPCS: 36415; 80053; 81001; 83970; 84100; 84439; 84443; 84481; 85025; 86160; 86162; 86225; 86355; 86357

== ENCOUNTER 2019-08-29 08:51 | Outpatient (CLI) | payer OTHER | END 2019-08-29 23:59 | disposition home or self-care (01) | LOC: LAB 08:51 | PROVIDERS: ATTEND Internal Medicine Nephrology | DX: R80.9 Proteinuria, unspecified (principal); N18.3 Chronic kidney disease, stage 3 (moderate); D63.1 Anemia in chronic kidney disease; M32.14 Glomerular disease in systemic lupus erythematosus; E55.9 Vitamin D deficiency, unspecified; N25.81 Secondary hyperparathyroidism of renal origin; M32.9 Systemic lupus erythematosus, unspecified | CPT/HCPCS: 87086 ==

== ENCOUNTER 2019-10-09 09:42 | Outpatient (CLI) | payer OTHER ==
[2019-10-09 10:23] LABS: BASOPHILS # (AUTO) 0.04 x10^3/uL (0-0.1); BASOPHILS % (AUTO) 1 % (0-1); EOSINOPHILS # (AUTO) 0.06 x10^3/uL (0-0.4); EOSINOPHILS % (AUTO) 1 % (1-7); LYMPHOCYTES % (AUTO) 34 % (22-44); MD NO; MEAN CORPUSCULAR HEMOGLOBIN 30.7 pg (27.0-34.8); MEAN CORPUSCULAR HGB CONC 33.7 g/dL (32.4-35.8); MEAN CORPUSCULAR VOLUME 91.3 fL (80-100); MEAN PLATELET VOLUME 8.6 fL (7.4-10.4); MONOCYTES # (AUTO) 0.51 x10^3/uL (0.2-0.8); MONOCYTES % (AUTO) 9 % (2-9); NEUTROPHILS # (AUTO) 3.19 x10^3/uL (1.8-6.8); NEUTROPHILS % (AUTO) 55 % (42-75); PLATELET COUNT 292 x10^3/uL (130-400); RED BLOOD COUNT 3.98 x10^6/uL (3.82-5.3); RED CELL DISTRIBUTION WIDTH 12.7 % (9.6-15.2)
[2019-10-09 10:28] LABS: MICROSCOPIC AUTO
[2019-10-09 10:30] LABS: CULTURE INDICATED? YES
[2019-10-09 10:32] LABS: ALANINE AMINOTRANSFERASE 19 U/L (12-78); ALBUMIN 3.1 g/dL (3.4-5.0); ANION GAP 7 mmol/L (5-15); CALCIUM 8.7 mg/dL (8.5-10.1); CHLORIDE 112 mmol/L (98-107); CREATININE 1.85 mg/dL (0.55-1.02); IRON LEVEL 55 mcg/dL (50-170)
[2019-10-09 10:35] LABS: % IRON SATURATION 20 % (20-55); ALKALINE PHOSPHATASE 97 U/L (45-117); BILIRUBIN,TOTAL 0.3 mg/dL (0.2-1.0); TOTAL IRON BINDING CAPACITY 278 mcg/dL (250-450); TOTAL PROTEIN 7.5 g/dL (6.4-8.2)
== END 2019-10-09 23:59 | disposition home or self-care (01) ==
LOC: LAB 09:42
PROVIDERS: ATTEND Internal Medicine Nephrology
DX: N18.3 Chronic kidney disease, stage 3 (moderate) (principal); D63.1 Anemia in chronic kidney disease; M32.14 Glomerular disease in systemic lupus erythematosus; E55.9 Vitamin D deficiency, unspecified; N25.81 Secondary hyperparathyroidism of renal origin; M32.9 Systemic lupus erythematosus, unspecified; R80.9 Proteinuria, unspecified
CPT/HCPCS: 36415; 80053; 81001; 82306; 82570; 82728; 83540; 83550; 84156; 85025; 86160; 86162; 86225; 86355; 86357; 87086

== ENCOUNTER → 2019-10-26 | Outpatient (CLI) | payer OTHER ==
[2019-10-26 15:40] LABS: BASOPHILS # (AUTO) 0.03 x10^3/uL (0-0.1); BASOPHILS % (AUTO) 0 % (0-1); EOSINOPHILS # (AUTO) 0.11 x10^3/uL (0-0.4); EOSINOPHILS % (AUTO) 1 % (1-7); LYMPHOCYTES # (AUTO) 2.45 x10^3/uL (1-3.4); LYMPHOCYTES % (AUTO) 31 % (22-44); MD NO; MEAN CORPUSCULAR HEMOGLOBIN 30.6 pg (27.0-34.8); MEAN CORPUSCULAR HGB CONC 33.5 g/dL (32.4-35.8); MEAN CORPUSCULAR VOLUME 91.2 fL (80-100); MEAN PLATELET VOLUME 8.9 fL (7.4-10.4); MICROSCOPIC AUTO; MONOCYTES # (AUTO) 0.59 x10^3/uL (0.2-0.8); MONOCYTES % (AUTO) 8 % (2-9); NEUTROPHILS # (AUTO) 4.65 x10^3/uL (1.8-6.8); NEUTROPHILS % (AUTO) 59 % (42-75); PLATELET COUNT 291 x10^3/uL (130-400); RED BLOOD COUNT 4.14 x10^6/uL (3.82-5.3); RED CELL DISTRIBUTION WIDTH 12.5 % (9.6-15.2)
[2019-10-26 15:44] LABS: CULTURE INDICATED? YES
[2019-10-26 15:49] LABS: ALANINE AMINOTRANSFERASE 19 U/L (12-78); ALBUMIN 3.2 g/dL (3.4-5.0); ANION GAP 6 mmol/L (5-15); CALCIUM 8.8 mg/dL (8.5-10.1); CHLORIDE 113 mmol/L (98-107); CREATININE 1.67 mg/dL (0.55-1.02)
[2019-10-26 15:51] LABS: ALKALINE PHOSPHATASE 82 U/L (45-117); BILIRUBIN,TOTAL 0.2 mg/dL (0.2-1.0); TOTAL PROTEIN 7.3 g/dL (6.4-8.2)
== END | disposition home or self-care (01) ==
LOC: CFH 11:39
PROVIDERS: ATTEND Internal Medicine Nephrology
DX: E55.9 Vitamin D deficiency, unspecified (principal); M32.9 Systemic lupus erythematosus, unspecified; N18.3 Chronic kidney disease, stage 3 (moderate); N25.81 Secondary hyperparathyroidism of renal origin; M32.14 Glomerular disease in systemic lupus erythematosus; R80.9 Proteinuria, unspecified; D63.1 Anemia in chronic kidney disease
CPT/HCPCS: 36415; 80053; 81001; 82570; 82784; 82785; 84156; 85025; 87086

== ENCOUNTER → 2019-12-14 | Outpatient (CLI) | payer OTHER ==
[~2019-12-14] MED LIST changes: +CALC0.25 PO; +CITA20TA6 PO; +ERGO500017 PO; +LEVO75TA PO; +LOSA25TA25 PO
== END | disposition home or self-care (01) ==
LOC: CFH 12:23
PROVIDERS: ATTEND Internal Medicine
DX: E04.1 Nontoxic single thyroid nodule (principal); R22.1 Localized swelling, mass and lump, neck
CPT/HCPCS: 76536

== ENCOUNTER → 2020-05-28 | Outpatient (CLI) | payer OTHER ==
[~2020-05-28] MED LIST changes: -PANT40TA5 PO; +PANT40TA6 PO
== END | disposition home or self-care (01) ==
LOC: CFH 12:46
PROVIDERS: ATTEND Internal Medicine Cardiovascular Disease
DX: I42.9 Cardiomyopathy, unspecified (principal)
CPT/HCPCS: 93306; 93356

== ENCOUNTER → 2020-06-03 | Outpatient (CLI) | payer OTHER ==
[2020-06-03 11:02] LABS: MICROSCOPIC AUTO
[2020-06-03 11:09] LABS: ANION GAP 7 mmol/L (5-15); CALCIUM 8.6 mg/dL (8.5-10.1); CHLORIDE 110 mmol/L (98-107)
[2020-06-03 11:11] LABS: ALANINE AMINOTRANSFERASE 19 U/L (12-78); ALKALINE PHOSPHATASE 98 U/L (45-117); BILIRUBIN,TOTAL 0.4 mg/dL (0.2-1.0); CREATININE 1.84 mg/dL (0.55-1.02)
[2020-06-03 11:17] LABS: BASOPHILS % (AUTO) 1 % (0-1); EOSINOPHILS % (AUTO) 1 % (1-7); LYMPHOCYTES % (AUTO) 33 % (22-44); MEAN CORPUSCULAR HEMOGLOBIN 29.9 pg (27.0-34.8); MEAN CORPUSCULAR HGB CONC 32.6 g/dL (32.4-35.8); MEAN PLATELET VOLUME 8.5 fL (7.4-10.4); MONOCYTES % (AUTO) 7 % (2-9); NEUTROPHILS % (AUTO) 58 % (42-75); PLATELET COUNT 318 x10^3/uL (130-400); RED BLOOD COUNT 4.02 x10^6/uL (3.82-5.3); RED CELL DISTRIBUTION WIDTH 12.2 % (9.6-15.2)
[2020-06-03 11:19] LABS: CREATININE,URINE RANDOM 68.5 mg/dL
[2020-06-03 11:22] LABS: MD NO
== END | disposition home or self-care (01) ==
LOC: LAB 10:38
PROVIDERS: ATTEND Internal Medicine Nephrology
DX: I12.9 Hypertensive chronic kidney disease with stage 1 through stage 4 chronic kidney disease, or unspecified chronic kidney disease (principal); M32.14 Glomerular disease in systemic lupus erythematosus; D63.1 Anemia in chronic kidney disease; E79.0 Hyperuricemia without signs of inflammatory arthritis and tophaceous disease; E55.9 Vitamin D deficiency, unspecified; N25.81 Secondary hyperparathyroidism of renal origin; M32.9 Systemic lupus erythematosus, unspecified; R80.9 Proteinuria, unspecified; N18.30 Chronic kidney disease, stage 3 unspecified
CPT/HCPCS: 36415; 80053; 81001; 82043; 82570; 83735; 84100; 84156; 85025; 86160; 86162; 86225

== ENCOUNTER 2020-08-19 08:35 | Outpatient (CLI) | payer OTHER ==
[2020-08-19 09:20] LABS: BASOPHILS % (AUTO) 1 % (0-1); EOSINOPHILS % (AUTO) 1 % (1-7); LYMPHOCYTES % (AUTO) 25 % (22-44); MEAN CORPUSCULAR HGB CONC 33.6 g/dL (32.4-35.8); MEAN PLATELET VOLUME 8.1 fL (7.4-10.4); MONOCYTES % (AUTO) 12 % (2-9); NEUTROPHILS % (AUTO) 62 % (42-75); PLATELET COUNT 284 x10^3/uL (130-400); RED BLOOD COUNT 4.08 x10^6/uL (3.82-5.3); RED CELL DISTRIBUTION WIDTH 12.8 % (9.6-15.2)
[2020-08-19 09:23] LABS: MD NO
[2020-08-19 09:25] LABS: MICROSCOPIC AUTO
[2020-08-19 09:32] LABS: CALCIUM 8.8 mg/dL (8.5-10.1)
[2020-08-19 09:36] LABS: % IRON SATURATION 20 % (20-55); ALANINE AMINOTRANSFERASE 29 U/L (12-78); ALKALINE PHOSPHATASE 92 U/L (45-117); ANION GAP 5 mmol/L (5-15); BILIRUBIN,TOTAL 0.3 mg/dL (0.2-1.0); CREATININE 2.21 mg/dL (0.55-1.02); IRON LEVEL 48 mcg/dL (50-170); TOTAL IRON BINDING CAPACITY 237 mcg/dL (250-450); TOTAL PROTEIN 6.8 g/dL (6.4-8.2)
[2020-08-19 09:38] LABS: CHLORIDE 113 mmol/L (98-107)
[2020-08-19 09:40] LABS: CALCIUM 8.8 mg/dL (8.5-10.1)
== END 2020-08-19 23:59 | disposition home or self-care (01) ==
LOC: LAB 08:35
PROVIDERS: ATTEND Internal Medicine Nephrology
DX: I12.9 Hypertensive chronic kidney disease with stage 1 through stage 4 chronic kidney disease, or unspecified chronic kidney disease (principal); N18.30 Chronic kidney disease, stage 3 unspecified; D63.1 Anemia in chronic kidney disease; E79.0 Hyperuricemia without signs of inflammatory arthritis and tophaceous disease; E55.9 Vitamin D deficiency, unspecified; N25.81 Secondary hyperparathyroidism of renal origin; M32.9 Systemic lupus erythematosus, unspecified; R80.9 Proteinuria, unspecified; M32.14 Glomerular disease in systemic lupus erythematosus
CPT/HCPCS: 36415; 80053; 81001; 82043; 82306; 82310; 82570; 82728; 83540; 83550; 83735; 83970; 84100; 84156; 84550; 85025; 86160; 86162; 86225; 87077; 87086

== ENCOUNTER → 2020-10-03 | Outpatient (CLI) | payer OTHER ==
[2020-10-03 13:38] LABS: BASOPHILS % (AUTO) 1 % (0-1); EOSINOPHILS % (AUTO) 1 % (1-7); LYMPHOCYTES % (AUTO) 27 % (22-44); MEAN CORPUSCULAR HEMOGLOBIN 30.7 pg (27.0-34.8); MEAN CORPUSCULAR HGB CONC 33.5 g/dL (32.4-35.8); MEAN PLATELET VOLUME 8.4 fL (7.4-10.4); MONOCYTES % (AUTO) 6 % (2-9); NEUTROPHILS % (AUTO) 65 % (42-75); PLATELET COUNT 319 x10^3/uL (130-400); RED BLOOD COUNT 4.07 x10^6/uL (3.82-5.3); RED CELL DISTRIBUTION WIDTH 12.4 % (9.6-15.2)
[2020-10-03 13:40] LABS: MICROSCOPIC AUTO
[2020-10-03 13:45] LABS: MD NO
[2020-10-03 13:49] LABS: ALANINE AMINOTRANSFERASE 33 U/L (12-78); ALBUMIN 3.3 g/dL (3.4-5.0); ANION GAP 7 mmol/L (5-15); CHLORIDE 113 mmol/L (98-107); CREATININE 2.29 mg/dL (0.55-1.02)
[2020-10-03 13:52] LABS: ALKALINE PHOSPHATASE 79 U/L (45-117); BILIRUBIN,TOTAL 0.2 mg/dL (0.2-1.0); TOTAL PROTEIN 7.2 g/dL (6.4-8.2)
[2020-10-03 14:00] LABS: FREE T4 (FREE THYROXINE) 1.1 ng/dL (0.76-1.46)
== END | disposition home or self-care (01) ==
LOC: LAB 13:13
PROVIDERS: ATTEND Internal Medicine Nephrology
DX: E55.9 Vitamin D deficiency, unspecified (principal); M32.9 Systemic lupus erythematosus, unspecified; M32.14 Glomerular disease in systemic lupus erythematosus; I12.9 Hypertensive chronic kidney disease with stage 1 through stage 4 chronic kidney disease, or unspecified chronic kidney disease; D63.1 Anemia in chronic kidney disease; N18.9 Chronic kidney disease, unspecified; E79.0 Hyperuricemia without signs of inflammatory arthritis and tophaceous disease; N25.81 Secondary hyperparathyroidism of renal origin; R80.9 Proteinuria, unspecified
CPT/HCPCS: 36415; 80053; 81001; 82570; 83735; 84100; 84156; 84439; 84443; 84481; 85025; 86160; 86162; 87086

== ENCOUNTER → 2020-12-11 | Outpatient (CLI) | payer OTHER ==
[2020-12-11 09:02] LABS: MICROSCOPIC AUTO
[2020-12-11 09:03] LABS: ALBUMIN 3.2 g/dL (3.4-5.0); ANION GAP 4 mmol/L (5-15); CALCIUM 8.3 mg/dL (8.5-10.1); CHLORIDE 112 mmol/L (98-107)
[2020-12-11 09:07] LABS: BASOPHILS % (AUTO) 1 % (0-1); EOSINOPHILS % (AUTO) 1 % (1-7); LYMPHOCYTES % (AUTO) 35 % (22-44); MEAN CORPUSCULAR HEMOGLOBIN 30.6 pg (27.0-34.8); MEAN CORPUSCULAR HGB CONC 33.3 g/dL (32.4-35.8); MEAN PLATELET VOLUME 8.6 fL (7.4-10.4); MONOCYTES % (AUTO) 7 % (2-9); NEUTROPHILS % (AUTO) 56 % (42-75); PLATELET COUNT 302 x10^3/uL (130-400); RED BLOOD COUNT 3.79 x10^6/uL (3.82-5.3); RED CELL DISTRIBUTION WIDTH 12.7 % (9.6-15.2)
[2020-12-11 09:08] LABS: MD NO
[2020-12-11 09:13] LABS: % IRON SATURATION 34 % (20-55); ALANINE AMINOTRANSFERASE 32 U/L (12-78); ALKALINE PHOSPHATASE 63 U/L (45-117); BILIRUBIN,TOTAL 0.3 mg/dL (0.2-1.0); CREATININE 1.89 mg/dL (0.55-1.02); IRON LEVEL 85 mcg/dL (50-170); TOTAL IRON BINDING CAPACITY 248 mcg/dL (250-450); TOTAL PROTEIN 6.9 g/dL (6.4-8.2)
== END | disposition home or self-care (01) ==
LOC: LAB 08:31
PROVIDERS: ATTEND Internal Medicine Nephrology
DX: I12.9 Hypertensive chronic kidney disease with stage 1 through stage 4 chronic kidney disease, or unspecified chronic kidney disease (principal); N18.4 Chronic kidney disease, stage 4 (severe); D63.1 Anemia in chronic kidney disease; M32.14 Glomerular disease in systemic lupus erythematosus; E79.0 Hyperuricemia without signs of inflammatory arthritis and tophaceous disease; E55.9 Vitamin D deficiency, unspecified; N25.81 Secondary hyperparathyroidism of renal origin; M32.9 Systemic lupus erythematosus, unspecified; R80.9 Proteinuria, unspecified
CPT/HCPCS: 36415; 80053; 81001; 82043; 82570; 82728; 83540; 83550; 83735; 84100; 84156; 84550; 85025

== ENCOUNTER → 2021-02-23 | Outpatient (CLI) | payer OTHER ==
[2021-02-23 08:18] LABS: BASOPHILS % (AUTO) 1 % (0-1); EOSINOPHILS % (AUTO) 1 % (1-7); LYMPHOCYTES % (AUTO) 31 % (22-44); MEAN CORPUSCULAR HEMOGLOBIN 31.2 pg (27.0-34.8); MEAN CORPUSCULAR HGB CONC 33.7 g/dL (32.4-35.8); MEAN PLATELET VOLUME 8.7 fL (7.4-10.4); MONOCYTES % (AUTO) 7 % (2-9); NEUTROPHILS % (AUTO) 60 % (42-75); PLATELET COUNT 301 x10^3/uL (130-400); RED CELL DISTRIBUTION WIDTH 12.3 % (9.6-15.2)
[2021-02-23 08:19] LABS: ALANINE AMINOTRANSFERASE 20 U/L (12-78); ANION GAP 3 mmol/L (5-15); CALCIUM 8.8 mg/dL (8.5-10.1); CHLORIDE 111 mmol/L (98-107); CREATININE 2.12 mg/dL (0.55-1.02)
[2021-02-23 08:22] LABS: ALKALINE PHOSPHATASE 76 U/L (45-117); BILIRUBIN,TOTAL 0.3 mg/dL (0.2-1.0); TOTAL PROTEIN 7.2 g/dL (6.4-8.2)
[2021-02-23 08:38] LABS: MICROSCOPIC AUTO
== END | disposition home or self-care (01) ==
LOC: LAB 07:37
PROVIDERS: ATTEND Internal Medicine Nephrology
DX: I12.9 Hypertensive chronic kidney disease with stage 1 through stage 4 chronic kidney disease, or unspecified chronic kidney disease (principal); M32.14 Glomerular disease in systemic lupus erythematosus; D63.1 Anemia in chronic kidney disease; N18.4 Chronic kidney disease, stage 4 (severe); E79.0 Hyperuricemia without signs of inflammatory arthritis and tophaceous disease; N25.81 Secondary hyperparathyroidism of renal origin; M32.9 Systemic lupus erythematosus, unspecified; R80.9 Proteinuria, unspecified; E55.9 Vitamin D deficiency, unspecified
CPT/HCPCS: 36415; 80053; 81001; 82043; 82306; 82310; 82570; 83735; 83970; 84100; 84156; 84550; 85025; 86160; 86162; 86225; 87086

== ENCOUNTER → 2021-03-23 | Outpatient (CLI) | payer OTHER ==
[2021-03-23 08:32] LABS: BASOPHILS % (AUTO) 1 % (0-1); EOSINOPHILS % (AUTO) 1 % (1-7); LYMPHOCYTES % (AUTO) 34 % (22-44); MEAN CORPUSCULAR HEMOGLOBIN 30.3 pg (27.0-34.8); MEAN CORPUSCULAR HGB CONC 33.5 g/dL (32.4-35.8); MEAN PLATELET VOLUME 8.1 fL (7.4-10.4); MONOCYTES % (AUTO) 6 % (2-9); NEUTROPHILS % (AUTO) 58 % (42-75); PLATELET COUNT 318 x10^3/uL (130-400); RED BLOOD COUNT 4.09 x10^6/uL (3.82-5.3); RED CELL DISTRIBUTION WIDTH 12.2 % (9.6-15.2)
[2021-03-23 08:45] LABS: ALBUMIN 2.9 g/dL (3.4-5.0); ANION GAP 6 mmol/L (5-15); CALCIUM 8.8 mg/dL (8.5-10.1); CHLORIDE 109 mmol/L (98-107)
[2021-03-23 08:49] LABS: % IRON SATURATION 30 % (20-55); ALANINE AMINOTRANSFERASE 18 U/L (12-78); ALKALINE PHOSPHATASE 66 U/L (45-117); BILIRUBIN,TOTAL 0.3 mg/dL (0.2-1.0); CREATININE 2.35 mg/dL (0.55-1.02); IRON LEVEL 78 mcg/dL (50-170); TOTAL IRON BINDING CAPACITY 262 mcg/dL (250-450); TOTAL PROTEIN 7.3 g/dL (6.4-8.2)
[2021-03-23 10:24] LABS: MICROSCOPIC AUTO
== END | disposition home or self-care (01) ==
LOC: LAB 08:10
PROVIDERS: ATTEND Internal Medicine Nephrology
DX: I12.9 Hypertensive chronic kidney disease with stage 1 through stage 4 chronic kidney disease, or unspecified chronic kidney disease (principal); N18.4 Chronic kidney disease, stage 4 (severe); M32.14 Glomerular disease in systemic lupus erythematosus; D63.1 Anemia in chronic kidney disease; E55.9 Vitamin D deficiency, unspecified; N25.81 Secondary hyperparathyroidism of renal origin; M32.9 Systemic lupus erythematosus, unspecified; R80.9 Proteinuria, unspecified; R79.9 Abnormal finding of blood chemistry, unspecified
CPT/HCPCS: 36415; 80053; 81001; 82570; 82728; 83540; 83550; 83735; 84100; 84156; 85025; 86160; 86162; 86225; 87086

== ENCOUNTER 2021-04-16 08:11 | Emergency (ER) | payer OTHER ==
[~2021-04-16] VITALS: Ht 165.1 cm; Wt 87.3 kg
[2021-04-16 08:17] VITALS: BP 124/77
--- NOTE | 2021-04-16 09:03 | NUR ---
Employee needle stick, waiting for dispo. Source pt was drawn.
== END 2021-04-16 10:02 | disposition home or self-care (01) ==
LOC: ED 09:09
DX: S61.031A Puncture wound without foreign body of right thumb without damage to nail, initial encounter (principal); I11.0 Hypertensive heart disease with heart failure; I50.9 Heart failure, unspecified; W22.8XXA Striking against or struck by other objects, initial encounter; Y93.89 Activity, other specified; Y92.69 Other specified industrial and construction area as the place of occurrence of the external cause; Y99.0 Civilian activity done for income or pay
CPT/HCPCS: 36415; 86705; 86706; 86803; 87340; 87806; 99283; G0475

== ENCOUNTER 2021-04-21 10:04 | Outpatient (CLI) | payer OTHER ==
[2021-04-21 10:28] LABS: BASOPHILS % (AUTO) 1 % (0-1); EOSINOPHILS % (AUTO) 1 % (1-7); LYMPHOCYTES % (AUTO) 35 % (22-44); MEAN CORPUSCULAR HEMOGLOBIN 30.8 pg (27.0-34.8); MEAN CORPUSCULAR HGB CONC 33.7 g/dL (32.4-35.8); MEAN PLATELET VOLUME 8.3 fL (7.4-10.4); MONOCYTES % (AUTO) 7 % (2-9); NEUTROPHILS % (AUTO) 56 % (42-75); PLATELET COUNT 284 x10^3/uL (130-400); RED BLOOD COUNT 3.84 x10^6/uL (3.82-5.3); RED CELL DISTRIBUTION WIDTH 12.4 % (9.6-15.2)
[2021-04-21 10:30] LABS: MICROSCOPIC AUTO
[2021-04-21 10:41] LABS: ALANINE AMINOTRANSFERASE 20 U/L (12-78); ALBUMIN 3.2 g/dL (3.4-5.0); ANION GAP 5 mmol/L (5-15); CALCIUM 8.9 mg/dL (8.5-10.1); CHLORIDE 112 mmol/L (98-107); CREATININE 2.15 mg/dL (0.55-1.02)
[2021-04-21 10:43] LABS: ALKALINE PHOSPHATASE 69 U/L (45-117); BILIRUBIN,TOTAL 0.3 mg/dL (0.2-1.0); TOTAL PROTEIN 7.3 g/dL (6.4-8.2)
== END 2021-04-21 23:59 | disposition home or self-care (01) ==
LOC: LAB 10:04
PROVIDERS: ATTEND Internal Medicine Nephrology
DX: I12.9 Hypertensive chronic kidney disease with stage 1 through stage 4 chronic kidney disease, or unspecified chronic kidney disease (principal); N18.4 Chronic kidney disease, stage 4 (severe); M32.14 Glomerular disease in systemic lupus erythematosus; D63.1 Anemia in chronic kidney disease; E79.0 Hyperuricemia without signs of inflammatory arthritis and tophaceous disease; E55.9 Vitamin D deficiency, unspecified; N25.81 Secondary hyperparathyroidism of renal origin; M32.9 Systemic lupus erythematosus, unspecified; R80.9 Proteinuria, unspecified
CPT/HCPCS: 36415; 80053; 81001; 82043; 82570; 83735; 84100; 84156; 85025; 86160; 86162; 86225; 87077; 87086